=== PATIENT | female | born 1985 | race African-American/Black ===

== ENCOUNTER 2018-02-14 07:22 | Emergency (ER) | payer MEDICAID ==
[2018-02-14] MEDS ORDERED: Lidocaine 2% Gel 5 mL TP ONE ×2 (07:48→08:10)
[2018-02-14] MEDS ORDERED: Triple Antibiotic 0.94 gm Pkt TP ONE (09:19)
--- NOTE | 2018-02-14 09:34 | ED Physician Chart ---
ED Chief Complaint/HPI - Patient Information Date Seen:: 02/14/18 Time Seen:: 07:41 Allergies:: Allergies Allergy/AdvReac Type Severity Reaction Status Date / Time acetaminophen [From Vicodin] Allergy Verified 02/14/18 07:40 hydrocodone [From Vicodin] Allergy Verified 02/14/18 07:40 Vitals:: Vital Signs - 8 hr 02/14/18 02/14/18 07:41 08:28 Temp 97.8 F 98.2 F HR 97 64 RR 16 19 BP 143/89 129/87 O2 Sat % 100 100 Historian:: Patient Review:: Nurse's Note Reviewed ED Review of Systems - Review of Systems General/Constitutional: No fever, No chills, No weight loss, No weakness, No diaphoresis, No edema, No loss of appetite Skin: Other (left index finger laceration, 1.2 cm) Head: No headache, No light-headedness Eyes: No loss of vision, No pain, No diplopia ENT: No earache, No nasal drainage, No sore throat, No tinnitus Neck: No neck pain, No swelling, No thyromegaly, No stiffness, No mass noted Cardio Vascular: No chest pain, No palpitations, No PND, No orthopnea, No edema Pulmonary: No SOB, No cough, No sputum, No wheezing GI: No nausea, No vomiting, No diarrhea, No pain, No melena, No hematochezia, No constipation, No hematemesis G/U: No dysuria, No frequency, No hematuria Musculoskeletal: No bone or joint pain, No back pain, No muscle pain Endocrine: No polyuria, No polydipsia Psychiatric: No prior psych history, No depression, No anxiety, No suicidal ideation Hematopoietic: No bruising, No lymphadenopathy Allergic/Immuno: No urticaria, No angioedema Neurological: No syncope, No focal symptoms, No weakness, No paresthesia, No headache, No seizure, Dizziness (no dizziness now at all. last dizziness one week ago with abrupt change in position.), No confusion, No vertigo ED Past Medical History - Past Medical History Obtainable: Yes Past Medical History: No significant medical hx Surgical History: Appendectomy Family Medical History - Family Member Grandmother Hx Family Diabetes: Yes Mother History Unknown: Yes ED Physical Exam - Physical Examination General/Constitutional: Awake, Well-developed, well-nourished, Alert, No distress, GCS 15, Non-toxic appearing, Ambulatory Head: Atraumatic Eyes: Lids, conjuctiva normal, PERRL, EOMI Skin: Nl inspection, No rash, No skin lesions, No ecchymosis, Well hydrated, No lymphadenopathy Other ENMT comments:: dry oral mucosa. no saliva on tongue. Neck: Nontender, Full ROM w/o pain, No JVD, No nuchal rigidity, No bruit, No mass, No stridor Respiratory: Nl effort/Exclusion, Clear to Auscultation, No Wheeze/Rhonchi/Rales Cardio Vascular: RRR, No murmur, gallop, rubs, NL S1 S2 Other Extremities comments:: Left index finger laceration with visible fat, on radial side. NV intact. Full flexion and extension. Neuro/Psych: Alert/oriented, Normal sensory exam, Normal motor strength, Judgement/insight normal, Mood normal, Normal gait, No focal deficits ED Assessment - Assessment General Assessment: Pulse change of 24 points. Patient encouraged to hydrate self. No indication for IV hydration or lab work. - Procedures Informed Consent: Procedure/risk/benefits explained by MD: Yes Location:: left index finger Laceration Type:: Simple Wound Length: 1.2 m Prep/Irrigation:: betadine prep, sterile saline irrigation. Inspection: No dirt/debris, NO FB Local Anesthetic:: 1% lidocaine without epinephrine. Suture Type and #: 4-0 prolene. 4 sutures placed sterilely. ED Septic Shock - . Is Septic Shock (SBP<90, OR Lactate>4 mmol\L) present?: No - <6hrs of presentation: Vital Signs: Vital Signs - 8 hr 02/14/18 02/14/18 07:41 08:28 Temp 97.8 F 98.2 F HR 97 64 RR 16 19 BP 143/89 129/87 O2 Sat % 100 100 ED Reassessment (Disposition) - Reassessment Reassessment Condition:: Improved - Diagnosis Diagnosis:: Left index finger laceration Dizziness secondary to dehydration and orthostasis. Able to hydrate self. - Aftercare/Follow up Instructions Aftercare/Follow-Up Instructions:: Refer to Discharge Instructions Notes:: wound care 2 x a day. Suture removal in 14 days. Medication Prescribed:: Keflex 500 mg po qid # 12; Tramadol 50 mg po every 8 hours # 12. - Patient Disposition Discharge/Transfer:: Home Condition at Disposition:: Stable, Improved
== END 2018-02-14 10:01 | disposition home or self-care (01) ==
LOC: ER 07:22
DX: S61.211A Laceration without foreign body of left index finger without damage to nail, initial encounter (principal); E86.0 Dehydration; Z90.49 Acquired absence of other specified parts of digestive tract; Z88.5 Allergy status to narcotic agent; R42 Dizziness and giddiness; X58.XXXA Exposure to other specified factors, initial encounter; Y93.89 Activity, other specified; Y92.89 Other specified places as the place of occurrence of the external cause; Y99.8 Other external cause status
CPT/HCPCS: 99284; 12001; 90715; 96372; J1885; Z7502

== ENCOUNTER 2018-02-22 10:59 | Emergency (ER) | payer MEDICAID ==
--- NOTE | 2018-02-22 11:27 | ED Physician Chart ---
ED Chief Complaint/HPI - Patient Information Date Seen:: 02/22/18 Time Seen:: 11:19 Chief Complaint:: wound check History of Present Illness:: THIS IS A 32 YO FEMALE WHO IS HERE FOR A WOUND CHECK AND IS CONCERNED ABOUT THE LEFT INDEX FINGER SWELLING, STATING THAT SHE CLEANED IT WITH SOAP AND WATER. THE WOUND IS 8 DAYS OLD WITH ALL SUTURES IN PLACE AND NOT DRAINING AND PUS OR FLUIDS. Allergies:: Allergies Allergy/AdvReac Type Severity Reaction Status Date / Time acetaminophen [From Vicodin] Allergy Verified 02/22/18 11:07 hydrocodone [From Vicodin] Allergy Verified 02/22/18 11:07 Vitals:: Vital Signs - 8 hr 02/22/18 11:07 Temp 97.9 F HR 64 RR 18 BP 130/87 O2 Sat % 100 Historian:: Patient Review:: Nurse's Note Reviewed ED Review of Systems - Review of Systems General/Constitutional: No fever, No chills, No weight loss, No weakness, No diaphoresis, No edema, No loss of appetite Skin: No skin lesions, No rash, No bruising Head: No headache, No light-headedness Eyes: No loss of vision, No pain, No diplopia ENT: No earache, No nasal drainage, No sore throat, No tinnitus Neck: No neck pain, No swelling, No thyromegaly, No stiffness, No mass noted Cardio Vascular: No chest pain, No palpitations, No PND, No orthopnea, No edema Pulmonary: No SOB, No cough, No sputum, No wheezing GI: No nausea, No vomiting, No diarrhea, No pain, No melena, No hematochezia, No constipation, No hematemesis G/U: No dysuria, No frequency, No hematuria Musculoskeletal: No bone or joint pain, No back pain, No muscle pain, Other ( HEALING SUTURED LEFT INDEX FINGER.) Endocrine: No polyuria, No polydipsia Psychiatric: No prior psych history, No depression, No anxiety, No suicidal ideation Hematopoietic: No bruising, No lymphadenopathy Allergic/Immuno: No urticaria, No angioedema Neurological: No syncope, No focal symptoms, No weakness, No paresthesia, No headache, No seizure, No dizziness, No confusion, No vertigo ED Past Medical History - Past Medical History Obtainable: Yes Past Medical History: No significant medical hx Family History: None Social History: Non Smoker, No Alcohol, No Drug Use, Employed Surgical History: Appendectomy Psychiatricy History: None Medication: Reviewed Family Medical History - Family Member Grandmother History Unknown: Yes Hx Family Diabetes: Yes Mother History Unknown: Yes Living Status: Still Living Hx Family Hypertension: Yes ED Physical Exam - Physical Examination General/Constitutional: Awake, Well-developed, well-nourished, Alert, No distress, GCS 15, Non-toxic appearing, Ambulatory Head: Atraumatic Eyes: Lids, conjuctiva normal, PERRL, EOMI Skin: Nl inspection, No rash, No skin lesions, No ecchymosis, Well hydrated, No lymphadenopathy ENMT: External ears, nose nl, Nasal exam nl, Lips, teeth, gums nl Neck: Nontender, Full ROM w/o pain, No JVD, No nuchal rigidity, No bruit, No mass, No stridor Respiratory: Nl effort/Exclusion, Clear to Auscultation, No Wheeze/Rhonchi/Rales Cardio Vascular: RRR, No murmur, gallop, rubs, NL S1 S2 GI: No tenderness/rebounding/guarding, No organomegaly, No hernia, Normal BS's, Nondistended, No mass/bruits, No McBurney tenderness : No CVA tenderness Extremities: No tenderness or effusion, Full ROM, normal strength in all extremities, No edema, Normal digits & nails Other Extremities comments:: THE LEFT INDEX FINGER HAS [address] WITH SOME SWELLING AT THE SUTURE SITE. THE ROM OF THE FINGER WAS NORMAL. Neuro/Psych: Alert/oriented, DTR's symmetric, Normal sensory exam, Normal motor strength, Judgement/insight normal, Mood normal, Normal gait, No focal deficits Misc: Normal back, No paraspinal tenderness ED Assessment - Assessment General Assessment: HEALING LACERATION ED Septic Shock - . Is Septic Shock (SBP<90, OR Lactate>4 mmol\L) present?: No - <6hrs of presentation: Vital Signs: Vital Signs - 8 hr 02/22/18 11:07 Temp 97.9 F HR 64 RR 18 BP 130/87 O2 Sat % 100 ED Reassessment (Disposition) - Reassessment Reassessment Condition:: Improved - Diagnosis Diagnosis:: WOUND CHECK ( LEFT INDEX FINGER) - Aftercare/Follow up Instructions Aftercare/Follow-Up Instructions:: Counseled pt regarding lab results/diagnosis & need follow up, Refer to Discharge Instructions, Counseled pt & family regarding lab results/diagnosis & need follow up - Patient Disposition Discharge/Transfer:: Home Condition at Disposition:: Improved
== END 2018-02-22 12:03 | disposition home or self-care (01) ==
LOC: ER 10:59
DX: S61.211A Laceration without foreign body of left index finger without damage to nail, initial encounter (principal); Z90.49 Acquired absence of other specified parts of digestive tract; Z88.5 Allergy status to narcotic agent; X58.XXXA Exposure to other specified factors, initial encounter; Y93.89 Activity, other specified; Y92.89 Other specified places as the place of occurrence of the external cause; Y99.8 Other external cause status
CPT/HCPCS: 99283; 96372; J0696; Z7502

== ENCOUNTER 2018-02-23 11:01 | Inpatient (IN) | payer MEDICAID ==
--- NOTE | 2018-02-23 11:59 | ED Physician Chart ---
ED Chief Complaint/HPI - Patient Information Date Seen:: 02/23/18 Time Seen:: 11:13 Chief Complaint:: swollen and red left index finger History of Present Illness:: swollen and red left index finger in a non-compliant patient who never got her oral antibiotics filled and cleaned the left index finger with tap water (with a lot of bacteria) and soap instead of cleaning the wound with hydrogen peroxide and antibiotic ointment like instructed to do so. the dressing that she came in with was a single folded gauze and circumferential tape unlike the dressing that was shown to her previously. also, the left index finger has no signs of any antibiotic ointment on it or on the gauze. patient was seen here yesterday and given a shot of Rocephin. Allergies:: Allergies Allergy/AdvReac Type Severity Reaction Status Date / Time acetaminophen [From Vicodin] Allergy Verified 02/22/18 11:07 hydrocodone [From Vicodin] Allergy Verified 02/22/18 11:07 Vitals:: Vital Signs - 8 hr 02/23/18 11:13 Temp 98.7 F HR 77 RR 15 BP 124/69 O2 Sat % 100 Historian:: Patient Review:: Nurse's Note Reviewed ED Review of Systems - Review of Systems General/Constitutional: No fever, No chills, No weight loss, No weakness, No diaphoresis, No edema, No loss of appetite Skin: Other (swollen, red and painful left index finger without s/s of tenosynovitis; positive lymphangitis; no crepitance; NV intact) Head: No headache, No light-headedness Eyes: No loss of vision, No pain, No diplopia ENT: No earache, No nasal drainage, No sore throat, No tinnitus Neck: No neck pain, No swelling, No thyromegaly, No stiffness, No mass noted Cardio Vascular: No chest pain, No palpitations, No PND, No orthopnea, No edema Pulmonary: SOB GI: No nausea, No vomiting, No diarrhea, No pain, No melena, No hematochezia, No constipation, No hematemesis G/U: No dysuria, No frequency, No hematuria Musculoskeletal: No bone or joint pain, No back pain, No muscle pain Endocrine: No polyuria, No polydipsia Psychiatric: No prior psych history, No depression, No anxiety, No suicidal ideation Hematopoietic: No bruising, No lymphadenopathy Allergic/Immuno: No urticaria, No angioedema Neurological: No syncope, No focal symptoms, No weakness, No paresthesia, No headache, No seizure, No dizziness, No confusion, No vertigo ED Past Medical History - Past Medical History Obtainable: Yes Past Medical History: No significant medical hx Family Medical History - Family Member Grandmother History Unknown: Yes Hx Family Diabetes: Yes Mother History Unknown: Yes Living Status: Still Living Hx Family Hypertension: Yes ED Physical Exam - Physical Examination General/Constitutional: Awake, Well-developed, well-nourished, Alert, No distress, GCS 15, Non-toxic appearing, Ambulatory Head: Atraumatic Eyes: Lids, conjuctiva normal, PERRL, EOMI Skin: No rash, No skin lesions, No ecchymosis, Well hydrated, No lymphadenopathy Other Skin comments:: swollen, red and painful left index finger without s/s of tenosynovitis; positive lymphangitis; no crepitance; NV intact ENMT: External ears, nose nl Neck: Nontender, Full ROM w/o pain, No JVD, No nuchal rigidity, No bruit, No mass, No stridor Respiratory: Nl effort/Exclusion, Clear to Auscultation, No Wheeze/Rhonchi/Rales Cardio Vascular: RRR, No murmur, gallop, rubs, NL S1 S2 GI: No tenderness/rebounding/guarding, No organomegaly, No hernia, Normal BS's, Nondistended, No mass/bruits, No McBurney tenderness : No CVA tenderness Other Extremities comments:: swollen, red and painful left index finger without s/s of tenosynovitis; positive lymphangitis; no crepitance; NV intact Neuro/Psych: Alert/oriented, Normal sensory exam Other Neuro/Psych comments:: painful to move left index finger. No s/s of tenosynovitis. Misc: Normal back, No paraspinal tenderness ED Assessment - Assessment General Assessment: tolerated IV Vancomycin well. Assessment/Comments:: called Dr. López who is registration officer to admit the patient to the hospital for IV antibiotics. ED Septic Shock - . Is Septic Shock (SBP<90, OR Lactate>4 mmol\L) present?: No - <6hrs of presentation: Vital Signs: Vital Signs - 8 hr 02/23/18 11:13 Temp 98.7 F HR 77 RR 15 BP 124/69 O2 Sat % 100 ED Reassessment (Disposition) - Reassessment Reassessment Condition:: Improved - Diagnosis Diagnosis:: Left index finger cellulitis and lymphangitis due to non-compliance of not filling oral antibiotics or taking them and not following wound care as shown and described with hydrogen peroxide and antibiotic ointment. - Patient Disposition Discharge/Transfer:: Acute Care w/in this hosp Admitted to:: Med/Surg Condition at Disposition:: Stable, Improved
[2018-02-23 12:33] LABS: EOSINOPHILE ABSOLUTE 0.1 Th/cmm (0.1-0.4); HEMOGLOBIN 11.2 gm/dL (12-16); MONOCYTE ABSOLUTE 0.1 Th/cmm (0.3-1.0)
[2018-02-23 12:36] LABS: % LYMPHOCYTES 17.1 % (20.0-50.0); % MONOCYTES 1.6 % (2.0-10.0); % NEUTROPHILS 80.3 % (40.0-80.0); HEMATOCRIT 34.3 % (41.0-60); LYMPHOCYTE ABSOLUTE 1.4 Th/cmm (1.5-3.0); MEAN CELL VOLUME 78.4 fl (81-100); MEAN CORPUSCULAR HEMOGLOBIN 25.6 pg (27.0-31.0); MEAN CORPUSCULAR HGB CONC 32.6 pg (28.0-36.0); MEAN PLATELET VOLUME 8.5 fl; NEUTROPHILE ABSOLUTE 6.6 Th/cmm (1.8-8.0); PLATELET COUNT 519 Th/cmm (150-400); RED BLOOD COUNT 4.38 Mil/cmm (3.80-5.10); RED CELL DISTRIBUTION WIDTH 14.8 % (11.5-20.0); WHITE BLOOD COUNT 8.2 Th/cmm (4.8-10.8)
[2018-02-23 12:50] LABS: ALB/GLOB RATIO 1.2 (1.0-1.8); ALBUMIN 3.9 gm/dL (3.7-5.3); ALKALINE PHOSPHATASE 44 U/L (34-104); BILIRUBIN,TOTAL 0.2 mg/dL (0.3-1.0); BUN - UREA NITROGEN 17 mg/dL (7-25); CARBON DIOXIDE 26.3 mEq/L (21.0-31.0); CHLORIDE 108 mEq/L (98-107); CREATININE - SERUM 0.7 mg/dL (0.6-1.2); GFR AFRICAN-AMERICAN > 60.0 ml/min (>90); GFR NON AFRICAN-AMERICAN > 60.0 ml/min; GLUCOSE 100 mg/dL (70-105); MAGNESIUM 2.2 mg/dL (1.9-2.7); PHOSPHOROUS 2.8 mg/dL (2.5-5.0); POTASSIUM SERUM 3.3 mEq/L (3.5-5.1); SGOT 17 U/L (13-39); SGPT/ALT 11 U/L (7-52); SODIUM SERUM 141 mEq/L (136-145); TOTAL PROTEIN,SERUM 7.3 gm/dL (6.0-8.3)
[2018-02-23] MEDS ORDERED: Potassium Chloride 20 mEq ER Tab PO ONE ×2 (12:54→13:21)
[2018-02-23 13:05] LABS: ESR SEDIMENTATION SED RATE 54 mm/hr (0-30)
[2018-02-23 14:59] LABS: URINE SOURCE CLEAN C
[2018-02-23 15:00] LABS: URINE BILIRUBIN NEGATIVE (NEGATIVE); URINE BLOOD LARGE (NEGATIVE); URINE GLUCOSE (UA) NEGATIVE (NEGATIVE); URINE KETONE NEGATIVE (NEGATIVE); URINE LEUKOCYTE ESTERASE NEGATIVE (NEGATIVE); URINE MICROSCOPIC INDICATED? YES; URINE NITRATE NEGATIVE (NEGATIVE); URINE PH 7.5 (4.6 - 8.0); URINE PROTEIN TRACE mg/dL (NEGATIVE); URINE UROBILINOGEN 0.2 E.U./dL (0.2 - 1.0)
[2018-02-23 15:15] LABS: URINE CLARITY CLEAR (CLEAR); URINE COLOR YELLOW
[2018-02-23 15:20] LABS: URINE BACTERIA 1+ /hpf (NONE SEEN); URINE EPITHELIAL CELLS MODERATE /lpf (FEW); URINE RBC 50-100 /hpf (0-5); URINE WBC 0-2 /hpf (0-5)
[2018-02-23 16:29] LABS: INR 0.88 (0.5-1.4); PROTHROMBIN TIME (TEST) 9.3 SECONDS (9.5-11.5)
[2018-02-23 19:00] VITALS: BP 134/70
[2018-02-24] MEDS ORDERED: Hydrocodone/APAP 10 mg/325 mg Tab PO PRN (02:42)
--- NOTE | 2018-02-24 04:22 | Consultation ---
DATE OF CONSULTATION: 02/23/2018 INFECTIOUS DISEASE CONSULTATION REFERRING PHYSICIAN: Dr. López. REASON FOR CONSULTATION: Left index finger cellulitis. HISTORY OF PRESENT ILLNESS: The patient is a 32-year-old female with no significant past medical history, who had a cut injury to index finger of left hand 10 days ago and she came to the ER on 02/14/2018, 4 stitches were applied and Keflex 500 mg p.o. 4 times a day prescribed. Unfortunately, she could not fill up the prescription. Although, she took care of the wound care with soap and water as instructed. She came back again yesterday, on 02/22/2018. She was worried about the left index finger swelling and pain. She was again discharged back home. Today, she could not tolerate her pain and developed pustules under the sutures. Ultimately, she was admitted to the hospital for further care, IV antibiotic and if possible surgical intervention. The patient denies any fever or chills. PAST MEDICAL HISTORY: None significant. ALLERGIES: ACETAMINOPHEN AND HYDROCODONE. FAMILY HISTORY: Hypertension in mother, grandmother has diabetes. SOCIAL HISTORY: The patient lives at home. Denies any smoking, alcohol, or drug use. REVIEW OF SYSTEMS: GENERAL: The patient has no fever, no chills. HEENT: No diplopia, no photophobia, no sore throat. RESPIRATORY: No cough, no shortness of breath. CVS: No chest pain. No palpitation. GASTROINTESTINAL: No nausea, no vomiting, no diarrhea, no constipation. GENITOURINARY: No dysuria. MUSCULOSKELETAL: The patient has swelling and redness of the left index finger with the pain. PHYSICAL EXAMINATION: VITAL SIGNS: Current vital signs shows temperature 98.9 degrees Fahrenheit, pulse 72, respirations 18, and blood pressure 122/69. GENERAL: The patient is comfortable lying in the bed, not in acute distress. HEENT: Head is normocephalic, atraumatic. Oral cavity moist, pink tongue. Eyes: No pallor, no icterus. PERRLA, EOMI. NECK: Supple, no JVD, no carotid bruit. Trachea in midline. CHEST: Bilateral breath sounds. No crackles or wheezing. CARDIOVASCULAR: S1, S2 within normal limits. Regular rhythm. No murmur, no gallop. ABDOMEN: Soft, nontender, nondistended. Bowel sounds present. EXTREMITIES: No cyanosis, no clubbing, no edema. Left hand, the patient has a surgical suture on the distal part of the left index finger. The stitches are intact. There is a pustule, swelling, erythema, and tenderness. NEUROLOGIC: Alert, awake, and oriented x 3. No focal deficit. LABORATORY DATA: Current lab shows WBC count is 8200, hemoglobin 11.2, hematocrit 34.3, platelets are 519,000, and neutrophils 80%. Sodium is 141, potassium 3.3, chloride 108, bicarbonate is 26.3, BUN is 17, creatinine 0.7, glucose is 100. Urinalysis showed negative nitrite, negative leukoesterase. IMPRESSION: 1. Cellulitis of left index finger, postsurgical site infection 2. s/p cut injury 10 days ago. PLAN AND RECOMMENDATIONS: Continue vancomycin and Zosyn. Blood cultures. I asked Dr. Biswas to see the patient. A 3-phase bone scan to rule out osteomyelitis to left index finger. If the patient needs a hand surgery as per Dr. Biswas, surgical lead, then transfer the patient to higher level of care. The patient was informed about the plan. Thank you, Dr. López, for involving me in taking care of this patient. JOB# [id number] KIMBERLY
--- NOTE | 2018-02-24 09:14 | Diagnostic Imaging Report ---
Left hand (2 views) HISTORY: Pain, swelling No acute bony abnormalities. No fractures. No abnormal soft tissue calcifications. IMPRESSION: No acute focal bony abnormalities
[2018-02-24] MEDS ORDERED: Hydrocodone/APAP 5mg/325mg Tab PO PRN (10:40)
--- NOTE | 2018-02-24 11:00 | Consultation ---
DATE OF CONSULTATION: 02/24/2018 SURGICAL CONSULTATION REFERRING PHYSICIAN: Dr. López. REASON FOR CONSULTATION: Infected left index finger. Thank you for referring this patient to me. HISTORY OF PRESENT ILLNESS: A 32-year-old female who while cooking cut herself with a knife. She came to the Emergency Room 10 days ago and sutures were placed. She apparently had a lot of bleeding associated with this. She was given prescription for Keflex, but did not take the medication. PAST MEDICAL HISTORY: Unremarkable. LABORATORY STUDIES: On this admission show WBC to be within normal limits. Hemoglobin is 11.2. Chemistries close to normal with blood sugar of 100. X-rays of the finger did not show any abnormality. PHYSICAL EXAMINATION: The finger is swollen. There are multiple sutures in the lateral aspect of the index finger at the proximal phalanx. There is a pustule present indicating infection. PLAN: The patient is to undergo bone scan and we will await further studies to be done. It is possible that there is osteomyelitis. Sutures will be removed and debridement will be done to effect better healing. JOB# [id number]
--- NOTE | 2018-02-25 00:56 | Infectious Disease Prog Note ---
Infectious Disease Subjective - Review of Systems Service Date: 02/25/18 Subjective: NO change as such. No fever. Infectious Disease Objective - Results Result Diagrams: 02/23/18 12:00 02/25/18 08:00 Recent Labs: Laboratory Last Values WBC 8.2 Th/cmm (4.8-10.8) 02/23/18 12:00 RBC 4.38 Mil/cmm (3.80-5.10) 02/23/18 12:00 Hgb 11.2 gm/dL (12-16) L 02/23/18 12:00 Hct 34.3 % (41.0-60) L 02/23/18 12:00 MCV 78.4 fl (81-100) L 02/23/18 12:00 MCH 25.6 pg (27.0-31.0) L 02/23/18 12:00 MCHC Differential 32.6 pg (28.0-36.0) 02/23/18 12:00 RDW 14.8 % (11.5-20.0) 02/23/18 12:00 Plt Count 519 Th/cmm (150-400) H 02/23/18 12:00 MPV 8.5 fl 02/23/18 12:00 Neutrophils % 80.3 % (40.0-80.0) H 02/23/18 12:00 Lymphocytes % 17.1 % (20.0-50.0) L 02/23/18 12:00 Monocytes % 1.6 % (2.0-10.0) L 02/23/18 12:00 Eosinophils % 1.0 % (0.0-5.0) 02/23/18 12:00 Basophils % 0.0 % (0.0-2.0) 02/23/18 12:00 ESR 54 mm/hr (0-30) H 02/23/18 12:00 PT 9.3 SECONDS (9.5-11.5) L 02/23/18 12:00 INR 0.88 (0.5-1.4) 02/23/18 12:00 PTT (Actin FS) 27.6 SECONDS (26.0-38.0) 02/23/18 12:00 Sodium 141 mEq/L (136-145) 02/23/18 12:00 Potassium 3.3 mEq/L (3.5-5.1) L 02/23/18 12:00 Chloride 108 mEq/L (98-107) H 02/23/18 12:00 Carbon Dioxide 26.3 mEq/L (21.0-31.0) 02/23/18 12:00 Anion Gap 10.0 (7.0-16.0) 02/23/18 12:00 BUN 17 mg/dL (7-25) 02/23/18 12:00 Creatinine 0.7 mg/dL (0.6-1.2) 02/23/18 12:00 Est GFR ( Amer) > 60.0 ml/min (>90) 02/23/18 12:00 Est GFR (Non-Af Amer) > 60.0 ml/min 02/23/18 12:00 BUN/Creatinine Ratio 24.3 02/23/18 12:00 Glucose 100 mg/dL (70-105) 02/23/18 12:00 Calcium 9.0 mg/dL (8.6-10.3) 02/23/18 12:00 Phosphorus 2.8 mg/dL (2.5-5.0) 02/23/18 12:00 Magnesium 2.2 mg/dL (1.9-2.7) 02/23/18 12:00 Total Bilirubin 0.2 mg/dL (0.3-1.0) L 02/23/18 12:00 AST 17 U/L (13-39) 02/23/18 12:00 ALT 11 U/L (7-52) 02/23/18 12:00 Alkaline Phosphatase 44 U/L (34-104) 02/23/18 12:00 Total Protein 7.3 gm/dL (6.0-8.3) 02/23/18 12:00 Albumin 3.9 gm/dL (3.7-5.3) 02/23/18 12:00 Globulin 3.4 gm/dL 02/23/18 12:00 Albumin/Globulin Ratio 1.2 (1.0-1.8) 02/23/18 12:00 Urine Source CLEAN C 02/23/18 14:52 Urine Color YELLOW 02/23/18 14:52 Urine Clarity CLEAR (CLEAR) 02/23/18 14:52 Urine pH 7.5 (4.6 - 8.0) 02/23/18 14:52 Ur Specific Wister 1.025 (1.005-1.030) 02/23/18 14:52 Urine Protein TRACE mg/dL (NEGATIVE) 02/23/18 14:52 Urine Glucose (UA) NEGATIVE mg/dL (NEGATIVE) 02/23/18 14:52 Urine Ketones NEGATIVE mg/dL (NEGATIVE) 02/23/18 14:52 Urine Blood LARGE (NEGATIVE) H 02/23/18 14:52 Urine Nitrate NEGATIVE (NEGATIVE) 02/23/18 14:52 Urine Bilirubin NEGATIVE (NEGATIVE) 02/23/18 14:52 Urine Urobilinogen 0.2 E.U./dL (0.2 - 1.0) 02/23/18 14:52 Ur Leukocyte Esterase NEGATIVE (NEGATIVE) 02/23/18 14:52 Urine RBC 50-100 /hpf (0-5) H 02/23/18 14:52 Urine WBC 0-2 /hpf (0-5) 02/23/18 14:52 Ur Epithelial Cells MODERATE /lpf (FEW) 02/23/18 14:52 Urine Bacteria 1+ /hpf (NONE SEEN) H 02/23/18 14:52 - Physical Exam Vitals and I&O: Vital Signs Temp 98.2 F 02/25/18 00:00 Pulse 64 02/25/18 00:00 Resp 18 02/25/18 00:00 BP 135/84 02/25/18 00:00 Pulse Ox 100 02/25/18 00:00 Intake & Output 02/24/18 02/24/18 02/25/18 06:59 18:59 06:59 Intake Total 1400 Balance 1400 Weight (lbs) 84.368 kg 84.368 kg Intake: Intake, IV Amount 200 Piperacillin Sodium/ 200 Tazobact 4.5 gm In Sodium Chloride 0.9% 100 ml @ 100 mls/hr IV Q8HR [facility] Rx #:[id number] Oral 1200 Other: # Voids 2 2 # Bowel Movements 3 Weight Source Bedscale Bedscale Active Medications: Current Medications Piperacillin Sod/Tazobactam (Sod 4.5 gm/ Sodium Chloride) 100 mls @ 100 mls/hr IV Q8HR [facility] Stop: 04/25/18 04:59 Last Admin: 02/24/18 21:38 Dose: 100 mls/hr Vancomycin HCl 1.25 gm/ Sodium (Chloride) 250 mls @ 165 mls/hr IV Q12H [facility] Stop: 04/25/18 20:59 Last Admin: 02/24/18 22:41 Dose: 165 mls/hr Ketorolac Tromethamine (Toradol) 15 mg IVP Q6HR PRN PRN Reason: Pain (Moderate) Stop: 03/01/18 12:13 Miscellaneous (Vancomycin Iv Per Pharmacy) 1 ea MC PRN PRN PRN Reason: PROTOCOL Stop: 04/24/18 18:25 Mupirocin (Bactroban Oint) 1 appl TP BID [facility] Stop: 03/01/18 16:59 Last Admin: 02/24/18 17:05 Dose: 1 appl Tramadol HCl (Ultram) 100 mg PO Q6HR PRN PRN Reason: Pain (Severe) Stop: 04/25/18 10:48 Last Admin: 02/24/18 12:30 Dose: 100 mg General: no acute distress, well developed, well nourished HEENT: atraumatic, normocephalic, PERRLA, EOMI Neck: supple, no thyromegaly Cardiovascular: S1S2, regular Lungs: clear to auscultation bilaterally, clear to percussion Abdomen: soft, no tender, no distended, no mass Extremities: other (left hand index finger swollen.), no cyanosis, no clubbing , no edema Neurological: awake Skin: intact - Procedures Procedures: Procedures Procedure Code Date LAPAROSCOP APPENDECTOMY 47.01 04/21/14 LAPAROSCOPY APPENDECTOMY 86394 04/21/14 Infectious Disease Assmt/Plan - Problem List Patient Problems: All Active Problems WOUND CHECK FOR PAIN AND SWELLING (Acute) - Assessment Assessment: Cellulitis of left index finger, postsurgical site infection. h/o cut injury left index finger. - Plan Plan: Continue Vanco IV and Zosyn IV. 3P bone scan. Wound care.
--- NOTE | 2018-02-25 01:39 | History & Physical ---
ADMIT DATE: 02/23/2018 CHIEF COMPLAINT: Left index finger pain, redness, and swelling. HISTORY OF PRESENT ILLNESS: This is a 32-year-old female who sustained a left index finger injury at home while she was in the kitchen with a knife. The patient was evaluated at [facility] Emergency Room, was given sutures and was given Keflex prescription, but she never filled the prescriptions. She was cleaning the wound at home with soap and water. The patient stated that her wound gradually got worse, so she came back to the Emergency Room 2 days ago where she again was evaluated in the Emergency Room and subsequently discharged home. The patient said that her pain becomes so severe that she came back to Emergency Room again and subsequently, the patient was admitted to the hospital for further evaluation and treatment. The patient denies any fevers, chills, or any other complaints. PAST MEDICAL HISTORY: Denies any past medical history. PAST SURGICAL HISTORY: Denies any past surgical history. FAMILY HISTORY: Denies any family history. SOCIAL HISTORY: Lives at home. Denies alcohol, tobacco, or street drug use. CURRENT MEDICATIONS: Per medication list. ALLERGIES: ACETAMINOPHEN and HYDROCODONE. REVIEW OF SYSTEMS: Left index pain, otherwise 12-point system is negative. PHYSICAL EXAMINATION: VITAL SIGNS: Temperature 97.9, pulse 64, respirations 18, and blood pressure 132/67. HEART: S1, S2 normal. LUNGS: Clear bilaterally. EXTREMITIES: Left index finger exam, swelling around the distal PIP joint, with redness, tender to touch. The patient was able to move the finger well. Pulses +2. ASSESSMENT: Left index finger cellulitis, rule out osteomyelitis. PLAN: The patient was admitted to [facility], started on IV vancomycin and Zosyn. ID, General Surgery, and orthopedic consultation has been called in. Per ID and General Surgery, bone scan ordered. Pending further recommendation after the bone scan results. I have also initiated transfer plan to tertiary care center for higher level of care for possible hand surgery evaluation, I discharged, coordinator is aware about the patient's conditions and transfer planning. Awaiting bone scan results, also pending orthopedic evaluation and recommendations. I discussed with the patient regarding her condition, plan of care. She fully verbalized understanding and agreed with the plan. Toradol will be given as needed for pain control. JOB# [id number]
[2018-02-25] MEDS ORDERED: Potassium Chloride 20 mEq ER Tab PO ONE (08:33)
[2018-02-25] MEDS: KCL 20mEq/100mL Premix 20 MEQ/100 ML PIGGYBACK IV SCH ×2 (09:16→12:44)
--- NOTE | 2018-02-25 11:57 | General Progress Note ---
Subjective - Review of Systems Service Date: 02/25/18 Events since last encounter: 02/25/18 had bone scan today depending on results, will likely need debridemnt of finger, likely leave it open with wound care Objective - Results Result Diagrams: 02/23/18 12:00 02/25/18 08:00 Recent Labs: Laboratory Last Values WBC 8.2 Th/cmm (4.8-10.8) 02/23/18 12:00 RBC 4.38 Mil/cmm (3.80-5.10) 02/23/18 12:00 Hgb 11.2 gm/dL (12-16) L 02/23/18 12:00 Hct 34.3 % (41.0-60) L 02/23/18 12:00 MCV 78.4 fl (81-100) L 02/23/18 12:00 MCH 25.6 pg (27.0-31.0) L 02/23/18 12:00 MCHC Differential 32.6 pg (28.0-36.0) 02/23/18 12:00 RDW 14.8 % (11.5-20.0) 02/23/18 12:00 Plt Count 519 Th/cmm (150-400) H 02/23/18 12:00 MPV 8.5 fl 02/23/18 12:00 Neutrophils % 80.3 % (40.0-80.0) H 02/23/18 12:00 Lymphocytes % 17.1 % (20.0-50.0) L 02/23/18 12:00 Monocytes % 1.6 % (2.0-10.0) L 02/23/18 12:00 Eosinophils % 1.0 % (0.0-5.0) 02/23/18 12:00 Basophils % 0.0 % (0.0-2.0) 02/23/18 12:00 ESR 54 mm/hr (0-30) H 02/23/18 12:00 PT 9.3 SECONDS (9.5-11.5) L 02/23/18 12:00 INR 0.88 (0.5-1.4) 02/23/18 12:00 PTT (Actin FS) 27.6 SECONDS (26.0-38.0) 02/23/18 12:00 Sodium 141 mEq/L (136-145) 02/23/18 12:00 Potassium 3.3 mEq/L (3.5-5.1) L 02/23/18 12:00 Chloride 108 mEq/L (98-107) H 02/23/18 12:00 Carbon Dioxide 26.3 mEq/L (21.0-31.0) 02/23/18 12:00 Anion Gap 10.0 (7.0-16.0) 02/23/18 12:00 BUN 22 mg/dL (7-25) 02/25/18 08:00 Creatinine 1.0 mg/dL (0.6-1.2) 02/25/18 08:00 Est GFR ( Amer) > 60.0 ml/min (>90) 02/23/18 12:00 Est GFR (Non-Af Amer) > 60.0 ml/min 02/23/18 12:00 BUN/Creatinine Ratio 24.3 02/23/18 12:00 Glucose 100 mg/dL (70-105) 02/23/18 12:00 Calcium 9.0 mg/dL (8.6-10.3) 02/23/18 12:00 Phosphorus 2.8 mg/dL (2.5-5.0) 02/23/18 12:00 Magnesium 2.2 mg/dL (1.9-2.7) 02/23/18 12:00 Total Bilirubin 0.2 mg/dL (0.3-1.0) L 02/23/18 12:00 AST 17 U/L (13-39) 02/23/18 12:00 ALT 11 U/L (7-52) 02/23/18 12:00 Alkaline Phosphatase 44 U/L (34-104) 02/23/18 12:00 Total Protein 7.3 gm/dL (6.0-8.3) 02/23/18 12:00 Albumin 3.9 gm/dL (3.7-5.3) 02/23/18 12:00 Globulin 3.4 gm/dL 02/23/18 12:00 Albumin/Globulin Ratio 1.2 (1.0-1.8) 02/23/18 12:00 Urine Source CLEAN C 02/23/18 14:52 Urine Color YELLOW 02/23/18 14:52 Urine Clarity CLEAR (CLEAR) 02/23/18 14:52 Urine pH 7.5 (4.6 - 8.0) 02/23/18 14:52 Ur Specific [place] 1.025 (1.005-1.030) 02/23/18 14:52 Urine Protein TRACE mg/dL (NEGATIVE) 02/23/18 14:52 Urine Glucose (UA) NEGATIVE mg/dL (NEGATIVE) 02/23/18 14:52 Urine Ketones NEGATIVE mg/dL (NEGATIVE) 02/23/18 14:52 Urine Blood LARGE (NEGATIVE) H 02/23/18 14:52 Urine Nitrate NEGATIVE (NEGATIVE) 02/23/18 14:52 Urine Bilirubin NEGATIVE (NEGATIVE) 02/23/18 14:52 Urine Urobilinogen 0.2 E.U./dL (0.2 - 1.0) 02/23/18 14:52 Ur Leukocyte Esterase NEGATIVE (NEGATIVE) 02/23/18 14:52 Urine RBC 50-100 /hpf (0-5) H 02/23/18 14:52 Urine WBC 0-2 /hpf (0-5) 02/23/18 14:52 Ur Epithelial Cells MODERATE /lpf (FEW) 02/23/18 14:52 Urine Bacteria 1+ /hpf (NONE SEEN) H 02/23/18 14:52 Vancomycin Trough 21.6 ug/mL (5-10) H 02/25/18 08:00 - Physical Exam Vitals and I&O: Vital Signs Temp 97.6 F 02/25/18 11:43 Pulse 40 02/25/18 11:43 Resp 18 02/25/18 11:43 BP 142/70 02/25/18 11:43 Pulse Ox 100 02/25/18 11:43 Intake & Output 02/24/18 02/25/18 02/25/18 18:59 06:59 18:59 Intake Total 1400 350 Balance 1400 350 Weight (lbs) 84.368 kg 84.368 kg Intake: Intake, IV Amount 200 350 Piperacillin Sodium/ 200 100 Tazobact 4.5 gm In Sodium Chloride 0.9% 100 ml @ 100 mls/hr IV Q8HR [facility] Rx #:[id number] Vancomycin HCl 1.25 gm In 250 Sodium Chloride 0.9% 250 ml @ 165 mls/hr IV Q12H [facility] Rx#:[id number] Oral 1200 Other: # Voids 2 # Bowel Movements 3 Weight Source Bedscale Bedscale Active Medications: Current Medications Piperacillin Sod/Tazobactam (Sod 4.5 gm/ Sodium Chloride) 100 mls @ 100 mls/hr IV Q8HR [facility] Stop: 04/25/18 04:59 Last Admin: 02/25/18 05:34 Dose: 100 mls/hr Vancomycin HCl 1.25 gm/ Sodium (Chloride) 250 mls @ 165 mls/hr IV Q12H [facility] Stop: 04/25/18 20:59 Last Admin: 02/25/18 10:47 Dose: 165 mls/hr Potassium Chloride (Potassium Chloride) 20 meq in 100 mls @ 50 mls/hr IV Q2H [facility] Stop: 02/25/18 12:32 Last Admin: 02/25/18 09:16 Dose: 50 mls/hr Potassium Chloride/Dextrose/Sod Cl (D5-0.45ns W/20 Meq Kcl) 1,000 mls @ 80 mls/ hr IV .[id number] [facility] Stop: 04/26/18 08:44 Ketorolac Tromethamine (Toradol) 15 mg IVP Q6HR PRN PRN Reason: Pain (Moderate) Stop: 03/01/18 12:13 Miscellaneous (Vancomycin Iv Per Pharmacy) 1 ea MC PRN PRN PRN Reason: PROTOCOL Stop: 04/24/18 18:25 Mupirocin (Bactroban Oint) 1 appl TP BID [facility] Stop: 03/01/18 16:59 Last Admin: 02/25/18 09:23 Dose: 1 appl Ondansetron HCl (Zofran) 4 mg IV Q6H PRN PRN Reason: Nausea / Vomiting Stop: 04/26/18 08:30 Last Admin: 02/25/18 09:12 Dose: 4 mg Tramadol HCl (Ultram) 100 mg PO Q6HR PRN PRN Reason: Pain (Severe) Stop: 04/25/18 10:48 Last Admin: 02/25/18 07:19 Dose: 100 mg - Procedures Procedures: Procedures Procedure Code Date LAPAROSCOP APPENDECTOMY 47.01 04/21/14 LAPAROSCOPY APPENDECTOMY 38874 04/21/14 Assessment/Plan - Problem List Patient Problems: All Active Problems WOUND CHECK FOR PAIN AND SWELLING (Acute)
--- NOTE | 2018-02-25 12:32 | Infectious Disease Prog Note ---
Infectious Disease Subjective - Review of Systems Service Date: 02/25/18 Subjective: Continue Vanco IV and Zosyn IV. 3P bone scan. Infectious Disease Objective - Results Result Diagrams: 02/26/18 05:40 02/26/18 05:40 Recent Labs: Laboratory Last Values WBC 8.2 Th/cmm (4.8-10.8) 02/23/18 12:00 RBC 4.38 Mil/cmm (3.80-5.10) 02/23/18 12:00 Hgb 11.2 gm/dL (12-16) L 02/23/18 12:00 Hct 34.3 % (41.0-60) L 02/23/18 12:00 MCV 78.4 fl (81-100) L 02/23/18 12:00 MCH 25.6 pg (27.0-31.0) L 02/23/18 12:00 MCHC Differential 32.6 pg (28.0-36.0) 02/23/18 12:00 RDW 14.8 % (11.5-20.0) 02/23/18 12:00 Plt Count 519 Th/cmm (150-400) H 02/23/18 12:00 MPV 8.5 fl 02/23/18 12:00 Neutrophils % 80.3 % (40.0-80.0) H 02/23/18 12:00 Lymphocytes % 17.1 % (20.0-50.0) L 02/23/18 12:00 Monocytes % 1.6 % (2.0-10.0) L 02/23/18 12:00 Eosinophils % 1.0 % (0.0-5.0) 02/23/18 12:00 Basophils % 0.0 % (0.0-2.0) 02/23/18 12:00 ESR 54 mm/hr (0-30) H 02/23/18 12:00 PT 9.3 SECONDS (9.5-11.5) L 02/23/18 12:00 INR 0.88 (0.5-1.4) 02/23/18 12:00 PTT (Actin FS) 27.6 SECONDS (26.0-38.0) 02/23/18 12:00 Sodium 141 mEq/L (136-145) 02/23/18 12:00 Potassium 3.3 mEq/L (3.5-5.1) L 02/23/18 12:00 Chloride 108 mEq/L (98-107) H 02/23/18 12:00 Carbon Dioxide 26.3 mEq/L (21.0-31.0) 02/23/18 12:00 Anion Gap 10.0 (7.0-16.0) 02/23/18 12:00 BUN 22 mg/dL (7-25) 02/25/18 08:00 Creatinine 1.0 mg/dL (0.6-1.2) 02/25/18 08:00 Est GFR ( Amer) > 60.0 ml/min (>90) 02/23/18 12:00 Est GFR (Non-Af Amer) > 60.0 ml/min 02/23/18 12:00 BUN/Creatinine Ratio 24.3 02/23/18 12:00 Glucose 100 mg/dL (70-105) 02/23/18 12:00 Calcium 9.0 mg/dL (8.6-10.3) 02/23/18 12:00 Phosphorus 2.8 mg/dL (2.5-5.0) 02/23/18 12:00 Magnesium 2.2 mg/dL (1.9-2.7) 02/23/18 12:00 Total Bilirubin 0.2 mg/dL (0.3-1.0) L 02/23/18 12:00 AST 17 U/L (13-39) 02/23/18 12:00 ALT 11 U/L (7-52) 02/23/18 12:00 Alkaline Phosphatase 44 U/L (34-104) 02/23/18 12:00 Total Protein 7.3 gm/dL (6.0-8.3) 02/23/18 12:00 Albumin 3.9 gm/dL (3.7-5.3) 02/23/18 12:00 Globulin 3.4 gm/dL 02/23/18 12:00 Albumin/Globulin Ratio 1.2 (1.0-1.8) 02/23/18 12:00 Urine Source CLEAN C 02/23/18 14:52 Urine Color YELLOW 02/23/18 14:52 Urine Clarity CLEAR (CLEAR) 02/23/18 14:52 Urine pH 7.5 (4.6 - 8.0) 02/23/18 14:52 Ur Specific [place] 1.025 (1.005-1.030) 02/23/18 14:52 Urine Protein TRACE mg/dL (NEGATIVE) 02/23/18 14:52 Urine Glucose (UA) NEGATIVE mg/dL (NEGATIVE) 02/23/18 14:52 Urine Ketones NEGATIVE mg/dL (NEGATIVE) 02/23/18 14:52 Urine Blood LARGE (NEGATIVE) H 02/23/18 14:52 Urine Nitrate NEGATIVE (NEGATIVE) 02/23/18 14:52 Urine Bilirubin NEGATIVE (NEGATIVE) 02/23/18 14:52 Urine Urobilinogen 0.2 E.U./dL (0.2 - 1.0) 02/23/18 14:52 Ur Leukocyte Esterase NEGATIVE (NEGATIVE) 02/23/18 14:52 Urine RBC 50-100 /hpf (0-5) H 02/23/18 14:52 Urine WBC 0-2 /hpf (0-5) 02/23/18 14:52 Ur Epithelial Cells MODERATE /lpf (FEW) 02/23/18 14:52 Urine Bacteria 1+ /hpf (NONE SEEN) H 02/23/18 14:52 Vancomycin Trough 21.6 ug/mL (5-10) H 02/25/18 08:00 - Physical Exam Vitals and I&O: Vital Signs Temp 97.6 F 02/25/18 11:43 Pulse 40 02/25/18 11:43 Resp 18 02/25/18 11:43 BP 142/70 02/25/18 11:43 Pulse Ox 100 02/25/18 11:43 Intake & Output 02/24/18 02/25/18 02/25/18 18:59 06:59 18:59 Intake Total 1400 350 Balance 1400 350 Weight (lbs) 84.368 kg 84.368 kg Intake: Intake, IV Amount 200 350 Piperacillin Sodium/ 200 100 Tazobact 4.5 gm In Sodium Chloride 0.9% 100 ml @ 100 mls/hr IV Q8HR [facility] Rx #:[id number] Vancomycin HCl 1.25 gm In 250 Sodium Chloride 0.9% 250 ml @ 165 mls/hr IV Q12H [facility] Rx#:[id number] Oral 1200 Other: # Voids 2 # Bowel Movements 3 Weight Source Bedscale Bedscale Active Medications: Current Medications Piperacillin Sod/Tazobactam (Sod 4.5 gm/ Sodium Chloride) 100 mls @ 100 mls/hr IV Q8HR [facility] Stop: 04/25/18 04:59 Last Admin: 02/25/18 05:34 Dose: 100 mls/hr Vancomycin HCl 1.25 gm/ Sodium (Chloride) 250 mls @ 165 mls/hr IV Q12H [facility] Stop: 02/25/18 23:59 Last Admin: 02/25/18 10:47 Dose: 165 mls/hr Potassium Chloride (Potassium Chloride) 20 meq in 100 mls @ 50 mls/hr IV Q2H [facility] Stop: 02/25/18 12:32 Last Admin: 02/25/18 09:16 Dose: 50 mls/hr Potassium Chloride/Dextrose/Sod Cl (D5-0.45ns W/20 Meq Kcl) 1,000 mls @ 80 mls/ hr IV .[id number] [facility] Stop: 04/26/18 08:44 Vancomycin HCl 1 gm/ Sodium (Chloride) 250 mls @ 165 mls/hr IV Q12H [facility] Stop: 04/27/18 16:59 Ketorolac Tromethamine (Toradol) 15 mg IVP Q6HR PRN PRN Reason: Pain (Moderate) Stop: 03/01/18 12:13 Miscellaneous (Vancomycin Iv Per Pharmacy) 1 ea MC PRN PRN PRN Reason: PROTOCOL Stop: 04/24/18 18:25 Mupirocin (Bactroban Oint) 1 appl TP BID [facility] Stop: 03/01/18 16:59 Last Admin: 02/25/18 09:23 Dose: 1 appl Ondansetron HCl (Zofran) 4 mg IV Q6H PRN PRN Reason: Nausea / Vomiting Stop: 04/26/18 08:30 Last Admin: 02/25/18 09:12 Dose: 4 mg Tramadol HCl (Ultram) 100 mg PO Q6HR PRN PRN Reason: Pain (Severe) Stop: 04/25/18 10:48 Last Admin: 02/25/18 07:19 Dose: 100 mg General: no acute distress, well developed, well nourished HEENT: atraumatic, normocephalic, PERRLA, EOMI Neck: supple, no thyromegaly Cardiovascular: S1S2, regular Lungs: clear to auscultation bilaterally, clear to percussion Abdomen: soft, no tender, no distended Extremities: other (left index finger redness improving), no cyanosis, no clubbing, no edema Neurological: awake, alert, oriented Skin: intact - Procedures Procedures: Procedures Procedure Code Date LAPAROSCOP APPENDECTOMY 47.01 04/21/14 LAPAROSCOPY APPENDECTOMY 49306 04/21/14 Infectious Disease Assmt/Plan - Assessment Assessment: Cellulitis of left index finger, postsurgical site infection s/p cut injury 10 days ago. - Plan Plan: Continue vancomycin IV and Zosyn IV. Wound care.
[2018-02-25] MEDS ORDERED: [UNRECOGNIZED DRUG - OTHER] TP ONE (14:00)
--- NOTE | 2018-02-25 15:06 | Diagnostic Imaging Report ---
Nuclear medicine 3 phase bone scan History: Penetrating injury of the left index finger Comparison: Left hand x-ray on 02/25/2018 Technique/procedure: 26.1 mCi millicuries of technetium 99 MDP was administered intravenously and flow, blood flow, and delayed images of the hands were obtained. Findings: Flow images demonstrate increased uptake of the left index finger. Blood flow images also demonstrate increased uptake of the left index finger. Delayed images demonstrate slight increased uptake seen along the left proximal interphalangeal and distal interphalangeal joint region. IMPRESSION: Findings suggestive of cellulitis of the left index finger. There is slight increased uptake seen within the proximal and distal interphalangeal joints of the left index finger on the delayed images. Osteomyelitis or involvement of the joint spaces cannot be completely excluded in this region. Recommend MRI for further assessment.
[2018-02-25] MEDS: D5-0.45NS w/20 mEq KCL 1,000 ML IV SCH (15:50)
--- NOTE | 2018-02-25 22:25 | General Progress Note ---
Subjective - Review of Systems Service Date: 02/25/18 Subjective: Patient seen and examined Nursing staff reported that patient had some episode of vomiting last night doing better this morning s/p bone scan Objective - Results Result Diagrams: 02/23/18 12:00 02/25/18 08:00 Recent Labs: Laboratory Last Values WBC 8.2 Th/cmm (4.8-10.8) 02/23/18 12:00 RBC 4.38 Mil/cmm (3.80-5.10) 02/23/18 12:00 Hgb 11.2 gm/dL (12-16) L 02/23/18 12:00 Hct 34.3 % (41.0-60) L 02/23/18 12:00 MCV 78.4 fl (81-100) L 02/23/18 12:00 MCH 25.6 pg (27.0-31.0) L 02/23/18 12:00 MCHC Differential 32.6 pg (28.0-36.0) 02/23/18 12:00 RDW 14.8 % (11.5-20.0) 02/23/18 12:00 Plt Count 519 Th/cmm (150-400) H 02/23/18 12:00 MPV 8.5 fl 02/23/18 12:00 Neutrophils % 80.3 % (40.0-80.0) H 02/23/18 12:00 Lymphocytes % 17.1 % (20.0-50.0) L 02/23/18 12:00 Monocytes % 1.6 % (2.0-10.0) L 02/23/18 12:00 Eosinophils % 1.0 % (0.0-5.0) 02/23/18 12:00 Basophils % 0.0 % (0.0-2.0) 02/23/18 12:00 ESR 54 mm/hr (0-30) H 02/23/18 12:00 PT 9.3 SECONDS (9.5-11.5) L 02/23/18 12:00 INR 0.88 (0.5-1.4) 02/23/18 12:00 PTT (Actin FS) 27.6 SECONDS (26.0-38.0) 02/23/18 12:00 Sodium 141 mEq/L (136-145) 02/23/18 12:00 Potassium 3.3 mEq/L (3.5-5.1) L 02/23/18 12:00 Chloride 108 mEq/L (98-107) H 02/23/18 12:00 Carbon Dioxide 26.3 mEq/L (21.0-31.0) 02/23/18 12:00 Anion Gap 10.0 (7.0-16.0) 02/23/18 12:00 BUN 22 mg/dL (7-25) 02/25/18 08:00 Creatinine 1.0 mg/dL (0.6-1.2) 02/25/18 08:00 Est GFR ( Amer) > 60.0 ml/min (>90) 02/23/18 12:00 Est GFR (Non-Af Amer) > 60.0 ml/min 02/23/18 12:00 BUN/Creatinine Ratio 24.3 02/23/18 12:00 Glucose 100 mg/dL (70-105) 02/23/18 12:00 Calcium 9.0 mg/dL (8.6-10.3) 02/23/18 12:00 Phosphorus 2.8 mg/dL (2.5-5.0) 02/23/18 12:00 Magnesium 2.2 mg/dL (1.9-2.7) 02/23/18 12:00 Total Bilirubin 0.2 mg/dL (0.3-1.0) L 02/23/18 12:00 AST 17 U/L (13-39) 02/23/18 12:00 ALT 11 U/L (7-52) 02/23/18 12:00 Alkaline Phosphatase 44 U/L (34-104) 02/23/18 12:00 Total Protein 7.3 gm/dL (6.0-8.3) 02/23/18 12:00 Albumin 3.9 gm/dL (3.7-5.3) 02/23/18 12:00 Globulin 3.4 gm/dL 02/23/18 12:00 Albumin/Globulin Ratio 1.2 (1.0-1.8) 02/23/18 12:00 Urine Source CLEAN C 02/23/18 14:52 Urine Color YELLOW 02/23/18 14:52 Urine Clarity CLEAR (CLEAR) 02/23/18 14:52 Urine pH 7.5 (4.6 - 8.0) 02/23/18 14:52 Ur Specific [place] 1.025 (1.005-1.030) 02/23/18 14:52 Urine Protein TRACE mg/dL (NEGATIVE) 02/23/18 14:52 Urine Glucose (UA) NEGATIVE mg/dL (NEGATIVE) 02/23/18 14:52 Urine Ketones NEGATIVE mg/dL (NEGATIVE) 02/23/18 14:52 Urine Blood LARGE (NEGATIVE) H 02/23/18 14:52 Urine Nitrate NEGATIVE (NEGATIVE) 02/23/18 14:52 Urine Bilirubin NEGATIVE (NEGATIVE) 02/23/18 14:52 Urine Urobilinogen 0.2 E.U./dL (0.2 - 1.0) 02/23/18 14:52 Ur Leukocyte Esterase NEGATIVE (NEGATIVE) 02/23/18 14:52 Urine RBC 50-100 /hpf (0-5) H 02/23/18 14:52 Urine WBC 0-2 /hpf (0-5) 02/23/18 14:52 Ur Epithelial Cells MODERATE /lpf (FEW) 02/23/18 14:52 Urine Bacteria 1+ /hpf (NONE SEEN) H 02/23/18 14:52 Urine Test NEGATIVE 02/25/18 18:00 Vancomycin Trough 21.6 ug/mL (5-10) H 02/25/18 08:00 - Physical Exam Vitals and I&O: Vital Signs Temp 96.8 F 02/25/18 20:00 Pulse 46 02/25/18 20:00 Resp 19 02/25/18 20:00 BP 152/68 02/25/18 20:00 Pulse Ox 99 02/25/18 20:00 Intake & Output 02/25/18 02/25/18 02/26/18 06:59 18:59 06:59 Intake Total 450 1000 100 Balance 450 1000 100 Weight (lbs) 84.368 kg 83.461 kg Intake: Intake, IV Amount 450 200 100 KCL 20mEq/100mL Premix 20 100 meq In 100 ml @ 50 mls/ hr IV Q2H [facility] Rx#: [id number] Piperacillin Sodium/ 200 100 100 Tazobact 4.5 gm In Sodium Chloride 0.9% 100 ml @ 100 mls/hr IV Q8HR [facility] Rx #:[id number] Vancomycin HCl 1.25 gm In 250 Sodium Chloride 0.9% 250 ml @ 165 mls/hr IV Q12H [facility] Rx#:[id number] Oral 800 Other: # Voids 5 # Bowel Movements 3 Weight Source Bedscale Bedscale Active Medications: Current Medications Piperacillin Sod/Tazobactam (Sod 4.5 gm/ Sodium Chloride) 100 mls @ 100 mls/hr IV Q8HR [facility] Stop: 04/25/18 04:59 Last Infusion: 02/25/18 21:11 Dose: Infused Potassium Chloride/Dextrose/Sod Cl (D5-0.45ns W/20 Meq Kcl) 1,000 mls @ 80 mls/ hr IV .[id number] [facility] Stop: 04/26/18 08:44 Last Admin: 02/25/18 15:50 Dose: 80 mls/hr Vancomycin HCl 1 gm/ Sodium (Chloride) 250 mls @ 165 mls/hr IV Q12H [facility] Stop: 04/26/18 20:59 Last Admin: 02/25/18 21:45 Dose: 165 mls/hr Ketorolac Tromethamine (Toradol) 15 mg IVP Q6HR PRN PRN Reason: Pain (Moderate) Stop: 03/01/18 12:13 Miscellaneous (Vancomycin Iv Per Pharmacy) 1 ea MC PRN PRN PRN Reason: PROTOCOL Stop: 04/24/18 18:25 Mupirocin (Bactroban Oint) 1 appl TP BID [facility] Stop: 03/01/18 16:59 Last Admin: 02/25/18 16:30 Dose: 1 appl Ondansetron HCl (Zofran) 4 mg IV Q6H PRN PRN Reason: Nausea / Vomiting Stop: 04/26/18 08:30 Last Admin: 02/25/18 21:47 Dose: 4 mg Tramadol HCl (Ultram) 100 mg PO Q6HR PRN PRN Reason: Pain (Severe) Stop: 04/25/18 10:48 Last Admin: 02/25/18 14:45 Dose: 100 mg Cardiovascular: Regular rate Lungs: Clear to auscultation Abdomen: Soft, no Tender, no Distended Extremities: Other (left index finger dressing in place clean) - Procedures Procedures: Procedures Procedure Code Date LAPAROSCOP APPENDECTOMY 47.01 04/21/14 LAPAROSCOPY APPENDECTOMY 75709 04/21/14 Assessment/Plan - Problem List Patient Problems: All Active Problems WOUND CHECK FOR PAIN AND SWELLING (Acute) - Assessment Assessment: Left index finger cellulitis Vomiting and diarrhea ? Medication side effect better Hypokalemia - Plan Plan: Bone scan ? osteo MRI ordered Wound debridement per DR MANUEL Ortho evaluated the patient ordered MRI left hand to r/o osteomyelitis Continue IV antibiotics and wound care K replaced patient was updated on plan of care She understood well Plan of care discussed with the nursing staff Nutritional Asmnt/Malnutr-PDOC - Dietary Evaluation Malnutrition Findings (Please click <Entered> for more info): Nutritional Asmnt/Malnutrition Start: 02/25/18 16: 46 Text: Status: Active Freq: Protocol: Document 02/25/18 17:02 [email or web address] (Rec: 02/25/18 17:21 [email or web address] [id number]) Nutritional Asmnt/Malnutrition Patient General Information Nutritional Screening High Risk Consult Diagnosis cellulitis Pertinent Medical Hx/Surgical Hx Pt denies any past medical/ surgical hx Subjective Information Recieved nutrition consult for wound. Pt was seen eating lunch in bed at time of visit. Pt initially c/o n/v possibly due to antibiotics, but reported no more s/s after administration of zofran per nursing note. Admitted d/t cellulitis of left index finger. Encouraged protein intake to promote wound healing. Pt verbalized understood. Per EMR, PO intake 75-100%. Pt provided food preferences. Current Diet Order/ Nutrition Support regular Pertinent Medications vancomycin, piperacillin, zofran, D5-0.45ns w/ 20 Meq Kcl Pertinent Labs 02/23: K 3.3, Cl 108 Nutritional Hx/Data Height 1.68 m Height (Calculated Centimeters) 167.6 Current Weight (lbs) 84.368 kg Weight (Calculated Kilograms) 84.4 Weight (Calculated Grams) 26401.2 [place] Body Weight 130 Body Mass Index (BMI) 29.9 Weight Status Overweight GI Symptoms GI Symptoms Nausea Vomitting Last BM 02/24 x3 Difficult in: None Food Allergies No Skin Integrity/Comment: incision and ulceration to left index finger Current %PO Good (75-100%) Estimated Nutritional Goals BEE in Kcals: Using Current wt Calories/Kcals/Kg 22-25 Kcals Calculated 7692-6609 Protein: Using Current wt Protein g/k Protein Calculated 84g Fluid: ml 7257-9275 (1 ml/kcal) Nutritional Problem 1. Problem Problem Increased protein needs Etiology wound healing Signs/Symptoms: incision and ulceration of left index finger Malnutrition Alert Is there a minimum of two criteria No selected? Query Text:Check all the applicable criteria. A minimum of two criteria are recommended for diagnosis of either severe or non-severe malnutrition. Malnutrition Related to Morbid Obesity Malnutrition related to morbid obesity No Intervention/Recommendation Comments 1. Continue with regular diet as order. PO intake to meet 100% of protein needs. Food preferences updated. 2. Monitor PO intake, wt, labs , and skin integrity of left index finger 3. F/U as moderate risk in 3-5 days, 02/28-03/02 Expected Outcomes/Goals Expected Outcomes/Goals 1. PO intake to meet at least 75% of nutritional needs 2. Wt stability, improvement of skin integrity, labs to approach WNL Reviewed by Alexandra Dalal RD
--- NOTE | 2018-02-25 22:28 | Consultation ---
DATE OF CONSULTATION: 02/25/2018 ORTHOPEDIC SURGERY CONSULTATION HISTORY OF PRESENT ILLNESS: The patient is a 32-year-old lady admitted to [facility] on 02/23/2018 because of an infection of her left index finger. She stated she had been to the Emergency Room 12 days earlier and had the left index finger laceration sutured. He had been given a prescription for antibiotics, but did not get it filled. She think it began to hurt and swell and she came back for 2 more visits and it was decided that she was infected, so she was admitted. I was called in orthopedic consultation by the admitting physician regarding her left index finger situation. PAST HISTORY: There is no prior history of injury or infection of her left index finger. General health is good. FAMILY HISTORY: Negative for TB, diabetes, and bleeding disorders. PHYSICAL EXAMINATION: The patient was examined in her hospital room on the [facility] k[facility]. The dressing on her left index finger was removed and the finger examined. There was a suture line extending from somewhat on the volar surface around the lateral aspect of the finger near the distal portion of the proximal phalanx. There is slight swelling, no obvious drainage. The dressing was dry. She does have sensation all around the tip of the left index finger, movement is minimal and painful. She can flex the tip against resistance. IMAGING STUDIES: I reviewed x-rays in the PACS on 02/23/2018, left hand and index finger. Slight soft tissue swelling of the left index finger was noted. The x-rays otherwise are normal. ORTHOPEDIC IMPRESSION: Infected laceration of the left index finger recommendations. RECOMMENDATIONS: The neurovascular bundle appears to be intact as she has full sensation on both sides of the tip and distal phalanx. The x-rays are clear, did not show any bone involvement. I would recommend the sutures be removed and the wound allowed to open slightly and start warm soaks for 30 minutes 4 times a day, putting Epsom salts in the water, so to draw out material. Continue the present antibiotic regimen. I will reevaluate her after 24 hours of said treatment and possibly debride the wound if she needs it. Thank you for this interesting referral. JOB# [id number]
[2018-02-26 06:35] LABS: % BASOPHILS 0.4 % (0.0-2.0); % EOSINOPHILS 1.7 % (0.0-5.0); % LYMPHOCYTES 25.9 % (20.0-50.0); EOSINOPHILE ABSOLUTE 0.1 Th/cmm (0.1-0.4); HEMOGLOBIN 9.7 gm/dL (12-16); MEAN CELL VOLUME 79.2 fl (81-100); MEAN CORPUSCULAR HEMOGLOBIN 25.5 pg (27.0-31.0); MEAN CORPUSCULAR HGB CONC 32.2 pg (28.0-36.0); MEAN PLATELET VOLUME 8.2 fl; MONOCYTE ABSOLUTE 0.8 Th/cmm (0.3-1.0); NEUTROPHILE ABSOLUTE 4.8 Th/cmm (1.8-8.0); PLATELET COUNT 459 Th/cmm (150-400); RED BLOOD COUNT 3.78 Mil/cmm (3.80-5.10); RED CELL DISTRIBUTION WIDTH 14.6 % (11.5-20.0); WHITE BLOOD COUNT 7.7 Th/cmm (4.8-10.8)
[2018-02-26 06:51] LABS: ALB/GLOB RATIO 1.1 (1.0-1.8); ALBUMIN 3.6 gm/dL (3.7-5.3); ALKALINE PHOSPHATASE 37 U/L (34-104); ANION GAP 11.7 (7.0-16.0); BILIRUBIN,TOTAL 0.4 mg/dL (0.3-1.0); BUN - UREA NITROGEN 13 mg/dL (7-25); CALCIUM SERUM 9.1 mg/dL (8.6-10.3); CARBON DIOXIDE 23.8 mEq/L (21.0-31.0); CHLORIDE 107 mEq/L (98-107); GFR AFRICAN-AMERICAN > 60.0 ml/min (>90); GFR NON AFRICAN-AMERICAN > 60.0 ml/min; GLUCOSE 93 mg/dL (70-105); POTASSIUM SERUM 3.5 mEq/L (3.5-5.1); SGOT 13 U/L (13-39); SGPT/ALT 8 U/L (7-52); SODIUM SERUM 139 mEq/L (136-145); TOTAL PROTEIN,SERUM 6.9 gm/dL (6.0-8.3)
--- NOTE | 2018-02-26 07:28 | General Progress Note ---
Subjective - Review of Systems Service Date: 02/26/18 Events since last encounter: bone scan noted will have Dr. Wylie take over management of this patient Objective - Results Result Diagrams: 02/26/18 05:40 02/26/18 05:40 Recent Labs: Laboratory Last Values WBC 7.7 Th/cmm (4.8-10.8) 02/26/18 05:40 RBC 3.78 Mil/cmm (3.80-5.10) L 02/26/18 05:40 Hgb 9.7 gm/dL (12-16) L 02/26/18 05:40 Hct 30.0 % (41.0-60) L 02/26/18 05:40 MCV 79.2 fl (81-100) L 02/26/18 05:40 MCH 25.5 pg (27.0-31.0) L 02/26/18 05:40 MCHC Differential 32.2 pg (28.0-36.0) 02/26/18 05:40 RDW 14.6 % (11.5-20.0) 02/26/18 05:40 Plt Count 459 Th/cmm (150-400) H 02/26/18 05:40 MPV 8.2 fl 02/26/18 05:40 Neutrophils % 61.0 % (40.0-80.0) 02/26/18 05:40 Lymphocytes % 25.9 % (20.0-50.0) 02/26/18 05:40 Monocytes % 11.0 % (2.0-10.0) H 02/26/18 05:40 Eosinophils % 1.7 % (0.0-5.0) 02/26/18 05:40 Basophils % 0.4 % (0.0-2.0) 02/26/18 05:40 ESR 54 mm/hr (0-30) H 02/23/18 12:00 PT 9.3 SECONDS (9.5-11.5) L 02/23/18 12:00 INR 0.88 (0.5-1.4) 02/23/18 12:00 PTT (Actin FS) 27.6 SECONDS (26.0-38.0) 02/23/18 12:00 Sodium 139 mEq/L (136-145) 02/26/18 05:40 Potassium 3.5 mEq/L (3.5-5.1) 02/26/18 05:40 Chloride 107 mEq/L (98-107) 02/26/18 05:40 Carbon Dioxide 23.8 mEq/L (21.0-31.0) 02/26/18 05:40 Anion Gap 11.7 (7.0-16.0) 02/26/18 05:40 BUN 13 mg/dL (7-25) 02/26/18 05:40 Creatinine 1.0 mg/dL (0.6-1.2) 02/26/18 05:40 Est GFR ( Amer) > 60.0 ml/min (>90) 02/26/18 05:40 Est GFR (Non-Af Amer) > 60.0 ml/min 02/26/18 05:40 BUN/Creatinine Ratio 13.0 02/26/18 05:40 Glucose 93 mg/dL (70-105) 02/26/18 05:40 Calcium 9.1 mg/dL (8.6-10.3) 02/26/18 05:40 Phosphorus 2.8 mg/dL (2.5-5.0) 02/23/18 12:00 Magnesium 2.2 mg/dL (1.9-2.7) 02/23/18 12:00 Total Bilirubin 0.4 mg/dL (0.3-1.0) 02/26/18 05:40 AST 13 U/L (13-39) 02/26/18 05:40 ALT 8 U/L (7-52) 02/26/18 05:40 Alkaline Phosphatase 37 U/L (34-104) 02/26/18 05:40 Total Protein 6.9 gm/dL (6.0-8.3) 02/26/18 05:40 Albumin 3.6 gm/dL (3.7-5.3) L 02/26/18 05:40 Globulin 3.3 gm/dL 02/26/18 05:40 Albumin/Globulin Ratio 1.1 (1.0-1.8) 02/26/18 05:40 Urine Source CLEAN C 02/23/18 14:52 Urine Color YELLOW 02/23/18 14:52 Urine Clarity CLEAR (CLEAR) 02/23/18 14:52 Urine pH 7.5 (4.6 - 8.0) 02/23/18 14:52 Ur Specific [place] 1.025 (1.005-1.030) 02/23/18 14:52 Urine Protein TRACE mg/dL (NEGATIVE) 02/23/18 14:52 Urine Glucose (UA) NEGATIVE mg/dL (NEGATIVE) 02/23/18 14:52 Urine Ketones NEGATIVE mg/dL (NEGATIVE) 02/23/18 14:52 Urine Blood LARGE (NEGATIVE) H 02/23/18 14:52 Urine Nitrate NEGATIVE (NEGATIVE) 02/23/18 14:52 Urine Bilirubin NEGATIVE (NEGATIVE) 02/23/18 14:52 Urine Urobilinogen 0.2 E.U./dL (0.2 - 1.0) 02/23/18 14:52 Ur Leukocyte Esterase NEGATIVE (NEGATIVE) 02/23/18 14:52 Urine RBC 50-100 /hpf (0-5) H 02/23/18 14:52 Urine WBC 0-2 /hpf (0-5) 02/23/18 14:52 Ur Epithelial Cells MODERATE /lpf (FEW) 02/23/18 14:52 Urine Bacteria 1+ /hpf (NONE SEEN) H 02/23/18 14:52 Urine Test NEGATIVE 02/25/18 18:00 Vancomycin Trough 21.6 ug/mL (5-10) H 02/25/18 08:00 - Physical Exam Vitals and I&O: Vital Signs Temp 98.9 F 02/26/18 04:00 Pulse 54 02/26/18 04:00 Resp 18 02/26/18 04:00 BP 134/80 02/26/18 04:00 Pulse Ox 100 02/26/18 04:00 Intake & Output 02/25/18 02/26/18 02/26/18 18:59 06:59 18:59 Intake Total 1000 100 Balance 1000 100 Weight (lbs) 83.461 kg Intake: Intake, IV Amount 200 100 KCL 20mEq/100mL Premix 20 100 meq In 100 ml @ 50 mls/ hr IV Q2H [facility] Rx#: [id number] Piperacillin Sodium/ 100 100 Tazobact 4.5 gm In Sodium Chloride 0.9% 100 ml @ 100 mls/hr IV Q8HR [facility] Rx #:[id number] Oral 800 Other: # Voids 5 # Bowel Movements 3 Weight Source Bedscale Active Medications: Current Medications Piperacillin Sod/Tazobactam (Sod 4.5 gm/ Sodium Chloride) 100 mls @ 100 mls/hr IV Q8HR [facility] Stop: 04/25/18 04:59 Last Admin: 02/26/18 05:17 Dose: 100 mls/hr Potassium Chloride/Dextrose/Sod Cl (D5-0.45ns W/20 Meq Kcl) 1,000 mls @ 80 mls/ hr IV .[id number] [facility] Stop: 04/26/18 08:44 Last Admin: 02/25/18 15:50 Dose: 80 mls/hr Vancomycin HCl 1 gm/ Sodium (Chloride) 250 mls @ 165 mls/hr IV Q12H [facility] Stop: 04/26/18 20:59 Last Admin: 02/25/18 21:45 Dose: 165 mls/hr Ketorolac Tromethamine (Toradol) 15 mg IVP Q6HR PRN PRN Reason: Pain (Moderate) Stop: 03/01/18 12:13 Miscellaneous (Vancomycin Iv Per Pharmacy) 1 ea MC PRN PRN PRN Reason: PROTOCOL Stop: 04/24/18 18:25 Mupirocin (Bactroban Oint) 1 appl TP BID [facility] Stop: 03/01/18 16:59 Last Admin: 02/25/18 16:30 Dose: 1 appl Ondansetron HCl (Zofran) 4 mg IV Q6H PRN PRN Reason: Nausea / Vomiting Stop: 04/26/18 08:30 Last Admin: 02/26/18 05:16 Dose: 4 mg Tramadol HCl (Ultram) 100 mg PO Q6HR PRN PRN Reason: Pain (Severe) Stop: 04/25/18 10:48 Last Admin: 02/25/18 14:45 Dose: 100 mg Cardiovascular: Regular rate Lungs: Clear to auscultation Abdomen: Soft, no Tender, no Distended Extremities: Other (left index finger dressing in place clean) - Procedures Procedures: Procedures Procedure Code Date LAPAROSCOP APPENDECTOMY 47.01 04/21/14 LAPAROSCOPY APPENDECTOMY 69395 04/21/14 Assessment/Plan - Problem List Patient Problems: All Active Problems WOUND CHECK FOR PAIN AND SWELLING (Acute) Nutritional Asmnt/Malnutr-PDOC - Dietary Evaluation Malnutrition Findings (Please click <Entered> for more info): Nutritional Asmnt/Malnutrition Start: 02/25/18 16: 46 Text: Status: Active Freq: Protocol: Document 02/25/18 17:02 SANDRA (Rec: 02/25/18 17:21 SANDRA [id number]) Nutritional Asmnt/Malnutrition Patient General Information Nutritional Screening High Risk Consult Diagnosis cellulitis Pertinent Medical Hx/Surgical Hx Pt denies any past medical/ surgical hx Subjective Information Recieved nutrition consult for wound. Pt was seen eating lunch in bed at time of visit. Pt initially c/o n/v possibly due to antibiotics, but reported no more s/s after administration of zofran per nursing note. Admitted d/t cellulitis of left index finger. Encouraged protein intake to promote wound healing. Pt verbalized understood. Per EMR, PO intake 75-100%. Pt provided food preferences. Current Diet Order/ Nutrition Support regular Pertinent Medications vancomycin, piperacillin, zofran, D5-0.45ns w/ 20 Meq Kcl Pertinent Labs 02/23: K 3.3, Cl 108 Nutritional Hx/Data Height 1.68 m Height (Calculated Centimeters) 167.6 Current Weight (lbs) 84.368 kg Weight (Calculated Kilograms) 84.4 Weight (Calculated Grams) 44676.2 [place] Body Weight 130 Body Mass Index (BMI) 29.9 Weight Status Overweight GI Symptoms GI Symptoms Nausea Vomitting Last BM 02/24 x3 Difficult in: None Food Allergies No Skin Integrity/Comment: incision and ulceration to left index finger Current %PO Good (75-100%) Estimated Nutritional Goals BEE in Kcals: Using Current wt Calories/Kcals/Kg 22-25 Kcals Calculated Protein: Using Current wt Protein g/k Protein Calculated 84g Fluid: ml (1 ml/kcal) Nutritional Problem 1. Problem Problem Increased protein needs Etiology wound healing Signs/Symptoms: incision and ulceration of left index finger Malnutrition Alert Is there a minimum of two criteria No selected? Query Text:Check all the applicable criteria. A minimum of two criteria are recommended for diagnosis of either severe or non-severe malnutrition. Malnutrition Related to Morbid Obesity Malnutrition related to morbid obesity No Intervention/Recommendation Comments 1. Continue with regular diet as order. PO intake to meet 100% of protein needs. Food preferences updated. 2. Monitor PO intake, wt, labs , and skin integrity of left index finger 3. F/U as moderate risk in 3-5 days, 02/28-03/02 Expected Outcomes/Goals Expected Outcomes/Goals 1. PO intake to meet at least 75% of nutritional needs 2. Wt stability, improvement of skin integrity, labs to approach WNL Reviewed by Alexandra Dalal RD
--- NOTE | 2018-02-26 09:41 | Infectious Disease Prog Note ---
Infectious Disease Subjective - Review of Systems Service Date: 02/26/18 Subjective: NO change as such. No fever. Infectious Disease Objective - Results Result Diagrams: 02/26/18 05:40 02/26/18 05:40 Recent Labs: Laboratory Last Values WBC 7.7 Th/cmm (4.8-10.8) 02/26/18 05:40 RBC 3.78 Mil/cmm (3.80-5.10) L 02/26/18 05:40 Hgb 9.7 gm/dL (12-16) L 02/26/18 05:40 Hct 30.0 % (41.0-60) L 02/26/18 05:40 MCV 79.2 fl (81-100) L 02/26/18 05:40 MCH 25.5 pg (27.0-31.0) L 02/26/18 05:40 MCHC Differential 32.2 pg (28.0-36.0) 02/26/18 05:40 RDW 14.6 % (11.5-20.0) 02/26/18 05:40 Plt Count 459 Th/cmm (150-400) H 02/26/18 05:40 MPV 8.2 fl 02/26/18 05:40 Neutrophils % 61.0 % (40.0-80.0) 02/26/18 05:40 Lymphocytes % 25.9 % (20.0-50.0) 02/26/18 05:40 Monocytes % 11.0 % (2.0-10.0) H 02/26/18 05:40 Eosinophils % 1.7 % (0.0-5.0) 02/26/18 05:40 Basophils % 0.4 % (0.0-2.0) 02/26/18 05:40 ESR 54 mm/hr (0-30) H 02/23/18 12:00 PT 9.3 SECONDS (9.5-11.5) L 02/23/18 12:00 INR 0.88 (0.5-1.4) 02/23/18 12:00 PTT (Actin FS) 27.6 SECONDS (26.0-38.0) 02/23/18 12:00 Sodium 139 mEq/L (136-145) 02/26/18 05:40 Potassium 3.5 mEq/L (3.5-5.1) 02/26/18 05:40 Chloride 107 mEq/L (98-107) 02/26/18 05:40 Carbon Dioxide 23.8 mEq/L (21.0-31.0) 02/26/18 05:40 Anion Gap 11.7 (7.0-16.0) 02/26/18 05:40 BUN 13 mg/dL (7-25) 02/26/18 05:40 Creatinine 1.0 mg/dL (0.6-1.2) 02/26/18 05:40 Est GFR ( Amer) > 60.0 ml/min (>90) 02/26/18 05:40 Est GFR (Non-Af Amer) > 60.0 ml/min 02/26/18 05:40 BUN/Creatinine Ratio 13.0 02/26/18 05:40 Glucose 93 mg/dL (70-105) 02/26/18 05:40 Calcium 9.1 mg/dL (8.6-10.3) 02/26/18 05:40 Phosphorus 2.8 mg/dL (2.5-5.0) 02/23/18 12:00 Magnesium 2.2 mg/dL (1.9-2.7) 02/23/18 12:00 Total Bilirubin 0.4 mg/dL (0.3-1.0) 02/26/18 05:40 AST 13 U/L (13-39) 02/26/18 05:40 ALT 8 U/L (7-52) 02/26/18 05:40 Alkaline Phosphatase 37 U/L (34-104) 02/26/18 05:40 Total Protein 6.9 gm/dL (6.0-8.3) 02/26/18 05:40 Albumin 3.6 gm/dL (3.7-5.3) L 02/26/18 05:40 Globulin 3.3 gm/dL 02/26/18 05:40 Albumin/Globulin Ratio 1.1 (1.0-1.8) 02/26/18 05:40 Urine Source CLEAN C 02/23/18 14:52 Urine Color YELLOW 02/23/18 14:52 Urine Clarity CLEAR (CLEAR) 02/23/18 14:52 Urine pH 7.5 (4.6 - 8.0) 02/23/18 14:52 Ur Specific [place] 1.025 (1.005-1.030) 02/23/18 14:52 Urine Protein TRACE mg/dL (NEGATIVE) 02/23/18 14:52 Urine Glucose (UA) NEGATIVE mg/dL (NEGATIVE) 02/23/18 14:52 Urine Ketones NEGATIVE mg/dL (NEGATIVE) 02/23/18 14:52 Urine Blood LARGE (NEGATIVE) H 02/23/18 14:52 Urine Nitrate NEGATIVE (NEGATIVE) 02/23/18 14:52 Urine Bilirubin NEGATIVE (NEGATIVE) 02/23/18 14:52 Urine Urobilinogen 0.2 E.U./dL (0.2 - 1.0) 02/23/18 14:52 Ur Leukocyte Esterase NEGATIVE (NEGATIVE) 02/23/18 14:52 Urine RBC 50-100 /hpf (0-5) H 02/23/18 14:52 Urine WBC 0-2 /hpf (0-5) 02/23/18 14:52 Ur Epithelial Cells MODERATE /lpf (FEW) 02/23/18 14:52 Urine Bacteria 1+ /hpf (NONE SEEN) H 02/23/18 14:52 Urine Test NEGATIVE 02/25/18 18:00 Vancomycin Trough 21.6 ug/mL (5-10) H 02/25/18 08:00 - Physical Exam Vitals and I&O: Vital Signs Temp 99.4 F 02/26/18 07:40 Pulse 51 02/26/18 07:40 Resp 18 02/26/18 08:00 BP 139/79 02/26/18 07:40 Pulse Ox 100 02/26/18 07:40 Intake & Output 02/25/18 02/26/18 02/26/18 18:59 06:59 18:59 Intake Total 1000 450 360 Balance 1000 450 360 Weight (lbs) 83.461 kg 83.461 kg Intake: Intake, IV Amount 200 450 KCL 20mEq/100mL Premix 20 100 meq In 100 ml @ 50 mls/ hr IV Q2H [facility] Rx#: [id number] Piperacillin Sodium/ 100 200 Tazobact 4.5 gm In Sodium Chloride 0.9% 100 ml @ 100 mls/hr IV Q8HR [facility] Rx #:[id number] Vancomycin HCl 1 gm In 250 Sodium Chloride 0.9% 250 ml @ 165 mls/hr IV Q12H [facility] Rx#:[id number] Oral 800 360 Other: # Voids 5 3 # Bowel Movements 3 0 Weight Source Bedscale Bedscale Active Medications: Current Medications Piperacillin Sod/Tazobactam (Sod 4.5 gm/ Sodium Chloride) 100 mls @ 100 mls/hr IV Q8HR [facility] Stop: 04/25/18 04:59 Last Infusion: 02/26/18 06:17 Dose: Infused Potassium Chloride/Dextrose/Sod Cl (D5-0.45ns W/20 Meq Kcl) 1,000 mls @ 80 mls/ hr IV .[id number] [facility] Stop: 04/26/18 08:44 Last Admin: 02/25/18 15:50 Dose: 80 mls/hr Vancomycin HCl 1 gm/ Sodium (Chloride) 250 mls @ 165 mls/hr IV Q12H [facility] Stop: 04/26/18 20:59 Last Admin: 02/26/18 09:06 Dose: 165 mls/hr Ketorolac Tromethamine (Toradol) 15 mg IVP Q6HR PRN PRN Reason: Pain (Moderate) Stop: 03/01/18 12:13 Miscellaneous (Vancomycin Iv Per Pharmacy) 1 ea MC PRN PRN PRN Reason: PROTOCOL Stop: 04/24/18 18:25 Mupirocin (Bactroban Oint) 1 appl TP BID [facility] Stop: 03/01/18 16:59 Last Admin: 02/25/18 16:30 Dose: 1 appl Ondansetron HCl (Zofran) 4 mg IV Q6H PRN PRN Reason: Nausea / Vomiting Stop: 04/26/18 08:30 Last Admin: 02/26/18 05:16 Dose: 4 mg Tramadol HCl (Ultram) 100 mg PO Q6HR PRN PRN Reason: Pain (Severe) Stop: 04/25/18 10:48 Last Admin: 02/25/18 14:45 Dose: 100 mg General: no acute distress, well developed, well nourished HEENT: atraumatic, normocephalic, PERRLA Neck: supple, no thyromegaly Cardiovascular: S1S2, regular Lungs: clear to auscultation bilaterally, clear to percussion Abdomen: soft, no tender, no distended Extremities: no cyanosis, no clubbing, no edema - Procedures Procedures: Procedures Procedure Code Date LAPAROSCOP APPENDECTOMY 47.01 04/21/14 LAPAROSCOPY APPENDECTOMY 80586 04/21/14 Infectious Disease Assmt/Plan - Problem List Patient Problems: All Active Problems WOUND CHECK FOR PAIN AND SWELLING (Acute) - Assessment Assessment: Cellulitis of left index finger, postsurgical site infection. h/o cut injury left index finger. - Plan Plan: Continue Vanco IV and Zosyn IV. 3P bone scan. Wound care. MRI of left hand ordered. Nutritional Asmnt/Malnutr-PDOC - Dietary Evaluation Malnutrition Findings (Please click <Entered> for more info): Nutritional Asmnt/Malnutrition Start: 02/25/18 16: 46 Text: Status: Active Freq: Protocol: Document 02/25/18 17:02 SHERIDOMI (Rec: 02/25/18 17:21 [email or web address] [id number]) Nutritional Asmnt/Malnutrition Patient General Information Nutritional Screening High Risk Consult Diagnosis cellulitis Pertinent Medical Hx/Surgical Hx Pt denies any past medical/ surgical hx Subjective Information Recieved nutrition consult for wound. Pt was seen eating lunch in bed at time of visit. Pt initially c/o n/v possibly due to antibiotics, but reported no more s/s after administration of zofran per nursing note. Admitted d/t cellulitis of left index finger. Encouraged protein intake to promote wound healing. Pt verbalized understood. Per EMR, PO intake 75-100%. Pt provided food preferences. Current Diet Order/ Nutrition Support regular Pertinent Medications vancomycin, piperacillin, zofran, D5-0.45ns w/ 20 Meq Kcl Pertinent Labs 02/23: K 3.3, Cl 108 Nutritional Hx/Data Height 1.68 m Height (Calculated Centimeters) 167.6 Current Weight (lbs) 84.368 kg Weight (Calculated Kilograms) 84.4 Weight (Calculated Grams) 64550.2 [place] Body Weight 130 Body Mass Index (BMI) 29.9 Weight Status Overweight GI Symptoms GI Symptoms Nausea Vomitting Last BM 02/24 x3 Difficult in: None Food Allergies No Skin Integrity/Comment: incision and ulceration to left index finger Current %PO Good (75-100%) Estimated Nutritional Goals BEE in Kcals: Using Current wt Calories/Kcals/Kg 22-25 Kcals Calculated 8228-0553 Protein: Using Current wt Protein g/k Protein Calculated 84g Fluid: ml 2972-1568 (1 ml/kcal) Nutritional Problem 1. Problem Problem Increased protein needs Etiology wound healing Signs/Symptoms: incision and ulceration of left index finger Malnutrition Alert Is there a minimum of two criteria No selected? Query Text:Check all the applicable criteria. A minimum of two criteria are recommended for diagnosis of either severe or non-severe malnutrition. Malnutrition Related to Morbid Obesity Malnutrition related to morbid obesity No Intervention/Recommendation Comments 1. Continue with regular diet as order. PO intake to meet 100% of protein needs. Food preferences updated. 2. Monitor PO intake, wt, labs , and skin integrity of left index finger 3. F/U as moderate risk in 3-5 days, 02/28-03/02 Expected Outcomes/Goals Expected Outcomes/Goals 1. PO intake to meet at least 75% of nutritional needs 2. Wt stability, improvement of skin integrity, labs to approach WNL Reviewed by Alexandra Dalal RD
--- NOTE | 2018-02-26 14:07 | Diagnostic Imaging Report ---
MRI left hand (left index finger) without intravenous contrast HISTORY: Swelling, cellulitis Multiple MRI sequences were obtained in the axial, coronal, and sagittal planes. The exam demonstrates subcentimeter foci and associated artifact noted within the soft tissues adjacent to the lateral aspect of the head of the second middle phalanx. The findings suggest possible foreign body. No radiopaque or metallic density seen on a plain radiograph of 02/23/2018. Though evaluation is limited due to the artifact, no definite abnormal soft tissue masses or abnormal fluid collections are seen. Bone marrow exhibits normal signal intensity throughout the index finger and the remainder of the hand. No other focal lesions. No joint effusions are seen. No definite abnormalities about the major flexor/extensor tendons/ligaments. IMPRESSION: 1. Subcentimeter foci and associated artifact within the soft tissues adjacent to the lateral aspect of the head of the second middle phalanx. Foreign bodies cannot be excluded. No metallic or radiopaque density seen on a plain radiograph of February 23, 2018. 2. No abnormal soft tissue masses or abnormal loculated fluid collections. 3. No evidence of osteomyelitis
--- NOTE | 2018-02-26 21:35 | General Progress Note ---
Subjective - Review of Systems Service Date: 02/26/18 Subjective: Patient doing better MRI left index finger negative for osteo Objective - Results Result Diagrams: 02/26/18 05:40 02/26/18 05:40 Recent Labs: Laboratory Last Values WBC 7.7 Th/cmm (4.8-10.8) 02/26/18 05:40 RBC 3.78 Mil/cmm (3.80-5.10) L 02/26/18 05:40 Hgb 9.7 gm/dL (12-16) L 02/26/18 05:40 Hct 30.0 % (41.0-60) L 02/26/18 05:40 MCV 79.2 fl (81-100) L 02/26/18 05:40 MCH 25.5 pg (27.0-31.0) L 02/26/18 05:40 MCHC Differential 32.2 pg (28.0-36.0) 02/26/18 05:40 RDW 14.6 % (11.5-20.0) 02/26/18 05:40 Plt Count 459 Th/cmm (150-400) H 02/26/18 05:40 MPV 8.2 fl 02/26/18 05:40 Neutrophils % 61.0 % (40.0-80.0) 02/26/18 05:40 Lymphocytes % 25.9 % (20.0-50.0) 02/26/18 05:40 Monocytes % 11.0 % (2.0-10.0) H 02/26/18 05:40 Eosinophils % 1.7 % (0.0-5.0) 02/26/18 05:40 Basophils % 0.4 % (0.0-2.0) 02/26/18 05:40 ESR 54 mm/hr (0-30) H 02/23/18 12:00 PT 9.3 SECONDS (9.5-11.5) L 02/23/18 12:00 INR 0.88 (0.5-1.4) 02/23/18 12:00 PTT (Actin FS) 27.6 SECONDS (26.0-38.0) 02/23/18 12:00 Sodium 139 mEq/L (136-145) 02/26/18 05:40 Potassium 3.5 mEq/L (3.5-5.1) 02/26/18 05:40 Chloride 107 mEq/L (98-107) 02/26/18 05:40 Carbon Dioxide 23.8 mEq/L (21.0-31.0) 02/26/18 05:40 Anion Gap 11.7 (7.0-16.0) 02/26/18 05:40 BUN 13 mg/dL (7-25) 02/26/18 05:40 Creatinine 1.0 mg/dL (0.6-1.2) 02/26/18 05:40 Est GFR ( Amer) > 60.0 ml/min (>90) 02/26/18 05:40 Est GFR (Non-Af Amer) > 60.0 ml/min 02/26/18 05:40 BUN/Creatinine Ratio 13.0 02/26/18 05:40 Glucose 93 mg/dL (70-105) 02/26/18 05:40 Calcium 9.1 mg/dL (8.6-10.3) 02/26/18 05:40 Phosphorus 2.8 mg/dL (2.5-5.0) 02/23/18 12:00 Magnesium 2.2 mg/dL (1.9-2.7) 02/23/18 12:00 Total Bilirubin 0.4 mg/dL (0.3-1.0) 02/26/18 05:40 AST 13 U/L (13-39) 02/26/18 05:40 ALT 8 U/L (7-52) 02/26/18 05:40 Alkaline Phosphatase 37 U/L (34-104) 02/26/18 05:40 Total Protein 6.9 gm/dL (6.0-8.3) 02/26/18 05:40 Albumin 3.6 gm/dL (3.7-5.3) L 02/26/18 05:40 Globulin 3.3 gm/dL 02/26/18 05:40 Albumin/Globulin Ratio 1.1 (1.0-1.8) 02/26/18 05:40 Urine Source CLEAN C 02/23/18 14:52 Urine Color YELLOW 02/23/18 14:52 Urine Clarity CLEAR (CLEAR) 02/23/18 14:52 Urine pH 7.5 (4.6 - 8.0) 02/23/18 14:52 Ur Specific [place] 1.025 (1.005-1.030) 02/23/18 14:52 Urine Protein TRACE mg/dL (NEGATIVE) 02/23/18 14:52 Urine Glucose (UA) NEGATIVE mg/dL (NEGATIVE) 02/23/18 14:52 Urine Ketones NEGATIVE mg/dL (NEGATIVE) 02/23/18 14:52 Urine Blood LARGE (NEGATIVE) H 02/23/18 14:52 Urine Nitrate NEGATIVE (NEGATIVE) 02/23/18 14:52 Urine Bilirubin NEGATIVE (NEGATIVE) 02/23/18 14:52 Urine Urobilinogen 0.2 E.U./dL (0.2 - 1.0) 02/23/18 14:52 Ur Leukocyte Esterase NEGATIVE (NEGATIVE) 02/23/18 14:52 Urine RBC 50-100 /hpf (0-5) H 02/23/18 14:52 Urine WBC 0-2 /hpf (0-5) 02/23/18 14:52 Ur Epithelial Cells MODERATE /lpf (FEW) 02/23/18 14:52 Urine Bacteria 1+ /hpf (NONE SEEN) H 02/23/18 14:52 Urine Test NEGATIVE 02/25/18 18:00 Vancomycin Trough 21.6 ug/mL (5-10) H 02/25/18 08:00 - Physical Exam Vitals and I&O: Vital Signs Temp 98.8 F 02/26/18 20:00 Pulse 55 02/26/18 20:00 Resp 20 02/26/18 20:00 BP 151/73 02/26/18 20:00 Pulse Ox 100 02/26/18 20:00 Intake & Output 02/26/18 02/26/18 02/27/18 06:59 18:59 06:59 Intake Total 450 710 Balance 450 710 Weight (lbs) 83.461 kg Intake: Intake, IV Amount 450 350 Piperacillin Sodium/ 200 100 Tazobact 4.5 gm In Sodium Chloride 0.9% 100 ml @ 100 mls/hr IV Q8HR [facility] Rx #:[id number] Vancomycin HCl 1 gm In 250 250 Sodium Chloride 0.9% 250 ml @ 165 mls/hr IV Q12H [facility] Rx#:[id number] Oral 360 Other: # Voids 3 # Bowel Movements 0 Weight Source Bedscale Active Medications: Current Medications Piperacillin Sod/Tazobactam (Sod 4.5 gm/ Sodium Chloride) 100 mls @ 100 mls/hr IV Q8HR [facility] Stop: 04/25/18 04:59 Last Infusion: 02/26/18 15:31 Dose: Infused Potassium Chloride/Dextrose/Sod Cl (D5-0.45ns W/20 Meq Kcl) 1,000 mls @ 80 mls/ hr IV .[id number] [facility] Stop: 04/26/18 08:44 Last Admin: 02/25/18 15:50 Dose: 80 mls/hr Vancomycin HCl 1 gm/ Sodium (Chloride) 250 mls @ 165 mls/hr IV Q12H [facility] Stop: 04/26/18 20:59 Last Infusion: 02/26/18 10:37 Dose: Infused Ketorolac Tromethamine (Toradol) 15 mg IVP Q6HR PRN PRN Reason: Pain (Moderate) Stop: 03/01/18 12:13 Miscellaneous (Vancomycin Iv Per Pharmacy) 1 ea MC PRN PRN PRN Reason: PROTOCOL Stop: 04/24/18 18:25 Mupirocin (Bactroban Oint) 1 appl TP BID [facility] Stop: 03/01/18 16:59 Last Admin: 02/26/18 17:13 Dose: Not Given Ondansetron HCl (Zofran) 4 mg IV Q6H PRN PRN Reason: Nausea / Vomiting Stop: 04/26/18 08:30 Last Admin: 02/26/18 20:42 Dose: 4 mg Tramadol HCl (Ultram) 100 mg PO Q6HR PRN PRN Reason: Pain (Severe) Stop: 04/25/18 10:48 Last Admin: 02/26/18 14:31 Dose: 100 mg Cardiovascular: Regular rate Lungs: Clear to auscultation Extremities: Other (left index finger dressing in place clean) - Procedures Procedures: Procedures Procedure Code Date LAPAROSCOP APPENDECTOMY 47.01 04/21/14 LAPAROSCOPY APPENDECTOMY 94839 04/21/14 Assessment/Plan - Problem List Patient Problems: All Active Problems WOUND CHECK FOR PAIN AND SWELLING (Acute) - Assessment Assessment: Left index finger cellulitis Vomiting and diarrhea ? Medication side effect better - Plan Plan: MRI negative for osteo Continue IV antibiotics and wound care per ortho rec remove suture per ortho Plan of care discussed with the nursing staff Nutritional Asmnt/Malnutr-PDOC - Dietary Evaluation Malnutrition Findings (Please click <Entered> for more info): Nutritional Asmnt/Malnutrition Start: 02/25/18 16: 46 Text: Status: Active Freq: Protocol: Document 02/25/18 17:02 SANDRA (Rec: 02/25/18 17:21 SANDRA [id number]) Nutritional Asmnt/Malnutrition Patient General Information Nutritional Screening High Risk Consult Diagnosis cellulitis Pertinent Medical Hx/Surgical Hx Pt denies any past medical/ surgical hx Subjective Information Recieved nutrition consult for wound. Pt was seen eating lunch in bed at time of visit. Pt initially c/o n/v possibly due to antibiotics, but reported no more s/s after administration of zofran per nursing note. Admitted d/t cellulitis of left index finger. Encouraged protein intake to promote wound healing. Pt verbalized understood. Per EMR, PO intake 75-100%. Pt provided food preferences. Current Diet Order/ Nutrition Support regular Pertinent Medications vancomycin, piperacillin, zofran, D5-0.45ns w/ 20 Meq Kcl Pertinent Labs 02/23: K 3.3, Cl 108 Nutritional Hx/Data Height 1.68 m Height (Calculated Centimeters) 167.6 Current Weight (lbs) 84.368 kg Weight (Calculated Kilograms) 84.4 Weight (Calculated Grams) 08523.2 [place] Body Weight 130 Body Mass Index (BMI) 29.9 Weight Status Overweight GI Symptoms GI Symptoms Nausea Vomitting Last BM 02/24 x3 Difficult in: None Food Allergies No Skin Integrity/Comment: incision and ulceration to left index finger Current %PO Good (75-100%) Estimated Nutritional Goals BEE in Kcals: Using Current wt Calories/Kcals/Kg 22-25 Kcals Calculated Protein: Using Current wt Protein g/k Protein Calculated 84g Fluid: ml (1 ml/kcal) Nutritional Problem 1. Problem Problem Increased protein needs Etiology wound healing Signs/Symptoms: incision and ulceration of left index finger Malnutrition Alert Is there a minimum of two criteria No selected? Query Text:Check all the applicable criteria. A minimum of two criteria are recommended for diagnosis of either severe or non-severe malnutrition. Malnutrition Related to Morbid Obesity Malnutrition related to morbid obesity No Intervention/Recommendation Comments 1. Continue with regular diet as order. PO intake to meet 100% of protein needs. Food preferences updated. 2. Monitor PO intake, wt, labs , and skin integrity of left index finger 3. F/U as moderate risk in 3-5 days, 02/28-03/02 Expected Outcomes/Goals Expected Outcomes/Goals 1. PO intake to meet at least 75% of nutritional needs 2. Wt stability, improvement of skin integrity, labs to approach WNL Reviewed by Alexandra Dalal RD
--- NOTE | 2018-02-27 00:34 | General Progress Note ---
Subjective - Review of Systems Service Date: 02/26/18 Subjective: Minimal / no pain left index finger. She had the sutures removed 02-25 and has been doing intermitant epsom salt soaks. Objective - Results Result Diagrams: 02/26/18 05:40 02/26/18 05:40 Recent Labs: Laboratory Last Values WBC 7.7 Th/cmm (4.8-10.8) 02/26/18 05:40 RBC 3.78 Mil/cmm (3.80-5.10) L 02/26/18 05:40 Hgb 9.7 gm/dL (12-16) L 02/26/18 05:40 Hct 30.0 % (41.0-60) L 02/26/18 05:40 MCV 79.2 fl (81-100) L 02/26/18 05:40 MCH 25.5 pg (27.0-31.0) L 02/26/18 05:40 MCHC Differential 32.2 pg (28.0-36.0) 02/26/18 05:40 RDW 14.6 % (11.5-20.0) 02/26/18 05:40 Plt Count 459 Th/cmm (150-400) H 02/26/18 05:40 MPV 8.2 fl 02/26/18 05:40 Neutrophils % 61.0 % (40.0-80.0) 02/26/18 05:40 Lymphocytes % 25.9 % (20.0-50.0) 02/26/18 05:40 Monocytes % 11.0 % (2.0-10.0) H 02/26/18 05:40 Eosinophils % 1.7 % (0.0-5.0) 02/26/18 05:40 Basophils % 0.4 % (0.0-2.0) 02/26/18 05:40 ESR 54 mm/hr (0-30) H 02/23/18 12:00 PT 9.3 SECONDS (9.5-11.5) L 02/23/18 12:00 INR 0.88 (0.5-1.4) 02/23/18 12:00 PTT (Actin FS) 27.6 SECONDS (26.0-38.0) 02/23/18 12:00 Sodium 139 mEq/L (136-145) 02/26/18 05:40 Potassium 3.5 mEq/L (3.5-5.1) 02/26/18 05:40 Chloride 107 mEq/L (98-107) 02/26/18 05:40 Carbon Dioxide 23.8 mEq/L (21.0-31.0) 02/26/18 05:40 Anion Gap 11.7 (7.0-16.0) 02/26/18 05:40 BUN 13 mg/dL (7-25) 02/26/18 05:40 Creatinine 1.0 mg/dL (0.6-1.2) 02/26/18 05:40 Est GFR ( Amer) > 60.0 ml/min (>90) 02/26/18 05:40 Est GFR (Non-Af Amer) > 60.0 ml/min 02/26/18 05:40 BUN/Creatinine Ratio 13.0 02/26/18 05:40 Glucose 93 mg/dL (70-105) 02/26/18 05:40 Calcium 9.1 mg/dL (8.6-10.3) 02/26/18 05:40 Phosphorus 2.8 mg/dL (2.5-5.0) 02/23/18 12:00 Magnesium 2.2 mg/dL (1.9-2.7) 02/23/18 12:00 Total Bilirubin 0.4 mg/dL (0.3-1.0) 02/26/18 05:40 AST 13 U/L (13-39) 02/26/18 05:40 ALT 8 U/L (7-52) 02/26/18 05:40 Alkaline Phosphatase 37 U/L (34-104) 02/26/18 05:40 Total Protein 6.9 gm/dL (6.0-8.3) 02/26/18 05:40 Albumin 3.6 gm/dL (3.7-5.3) L 02/26/18 05:40 Globulin 3.3 gm/dL 02/26/18 05:40 Albumin/Globulin Ratio 1.1 (1.0-1.8) 02/26/18 05:40 Urine Source CLEAN C 02/23/18 14:52 Urine Color YELLOW 02/23/18 14:52 Urine Clarity CLEAR (CLEAR) 02/23/18 14:52 Urine pH 7.5 (4.6 - 8.0) 02/23/18 14:52 Ur Specific [place] 1.025 (1.005-1.030) 02/23/18 14:52 Urine Protein TRACE mg/dL (NEGATIVE) 02/23/18 14:52 Urine Glucose (UA) NEGATIVE mg/dL (NEGATIVE) 02/23/18 14:52 Urine Ketones NEGATIVE mg/dL (NEGATIVE) 02/23/18 14:52 Urine Blood LARGE (NEGATIVE) H 02/23/18 14:52 Urine Nitrate NEGATIVE (NEGATIVE) 02/23/18 14:52 Urine Bilirubin NEGATIVE (NEGATIVE) 02/23/18 14:52 Urine Urobilinogen 0.2 E.U./dL (0.2 - 1.0) 02/23/18 14:52 Ur Leukocyte Esterase NEGATIVE (NEGATIVE) 02/23/18 14:52 Urine RBC 50-100 /hpf (0-5) H 02/23/18 14:52 Urine WBC 0-2 /hpf (0-5) 02/23/18 14:52 Ur Epithelial Cells MODERATE /lpf (FEW) 02/23/18 14:52 Urine Bacteria 1+ /hpf (NONE SEEN) H 02/23/18 14:52 Urine Test NEGATIVE 02/25/18 18:00 Vancomycin Trough 21.6 ug/mL (5-10) H 02/25/18 08:00 - Physical Exam Vitals and I&O: Vital Signs Temp 98.8 F 02/26/18 20:00 Pulse 55 02/26/18 20:00 Resp 18 02/26/18 20:00 BP 151/73 02/26/18 20:00 Pulse Ox 100 02/26/18 20:00 Intake & Output 02/26/18 02/26/18 02/27/18 06:59 18:59 06:59 Intake Total 450 710 Balance 450 710 Weight (lbs) 83.461 kg Intake: Intake, IV Amount 450 350 Piperacillin Sodium/ 200 100 Tazobact 4.5 gm In Sodium Chloride 0.9% 100 ml @ 100 mls/hr IV Q8HR [facility] Rx #:[id number] Vancomycin HCl 1 gm In 250 250 Sodium Chloride 0.9% 250 ml @ 165 mls/hr IV Q12H [facility] Rx#:[id number] Oral 360 Other: # Voids 3 # Bowel Movements 0 Weight Source Bedscale Active Medications: Current Medications Piperacillin Sod/Tazobactam (Sod 4.5 gm/ Sodium Chloride) 100 mls @ 100 mls/hr IV Q8HR [facility] Stop: 04/25/18 04:59 Last Admin: 02/26/18 21:34 Dose: 100 mls/hr Potassium Chloride/Dextrose/Sod Cl (D5-0.45ns W/20 Meq Kcl) 1,000 mls @ 80 mls/ hr IV .[id number] [facility] Stop: 04/26/18 08:44 Last Admin: 02/25/18 15:50 Dose: 80 mls/hr Vancomycin HCl 1 gm/ Sodium (Chloride) 250 mls @ 165 mls/hr IV Q12H [facility] Stop: 04/26/18 20:59 Last Admin: 02/26/18 22:34 Dose: 165 mls/hr Ketorolac Tromethamine (Toradol) 15 mg IVP Q6HR PRN PRN Reason: Pain (Moderate) Stop: 03/01/18 12:13 Miscellaneous (Vancomycin Iv Per Pharmacy) 1 ea MC PRN PRN PRN Reason: PROTOCOL Stop: 04/24/18 18:25 Mupirocin (Bactroban Oint) 1 appl TP BID [facility] Stop: 03/01/18 16:59 Last Admin: 02/26/18 17:13 Dose: Not Given Ondansetron HCl (Zofran) 4 mg IV Q6H PRN PRN Reason: Nausea / Vomiting Stop: 04/26/18 08:30 Last Admin: 02/26/18 20:42 Dose: 4 mg Tramadol HCl (Ultram) 100 mg PO Q6HR PRN PRN Reason: Pain (Severe) Stop: 04/25/18 10:48 Last Admin: 02/26/18 14:31 Dose: 100 mg Cardiovascular: Regular rate Lungs: Clear to auscultation Abdomen: Soft, no Tender, no Distended Extremities: Other (left index finger dressing in place clean) - Procedures Procedures: Procedures Procedure Code Date LAPAROSCOP APPENDECTOMY 47.01 04/21/14 LAPAROSCOPY APPENDECTOMY 86995 04/21/14 Assessment/Plan - Problem List Patient Problems: All Active Problems WOUND CHECK FOR PAIN AND SWELLING (Acute) - Assessment Assessment: Swelling (mild) and now open wound, left index finger. No drainage noted..Neurovascular, OK. Continue with present Rx. Probably able to go to outpatient care soon. Nutritional Asmnt/Malnutr-PDOC - Dietary Evaluation Malnutrition Findings (Please click <Entered> for more info): Nutritional Asmnt/Malnutrition Start: 02/25/18 16: 46 Text: Status: Active Freq: Protocol: Document 02/25/18 17:02 SANDRA (Rec: 02/25/18 17:21 SANDRA [id number]) Nutritional Asmnt/Malnutrition Patient General Information Nutritional Screening High Risk Consult Diagnosis cellulitis Pertinent Medical Hx/Surgical Hx Pt denies any past medical/ surgical hx Subjective Information Recieved nutrition consult for wound. Pt was seen eating lunch in bed at time of visit. Pt initially c/o n/v possibly due to antibiotics, but reported no more s/s after administration of zofran per nursing note. Admitted d/t cellulitis of left index finger. Encouraged protein intake to promote wound healing. Pt verbalized understood. Per EMR, PO intake 75-100%. Pt provided food preferences. Current Diet Order/ Nutrition Support regular Pertinent Medications vancomycin, piperacillin, zofran, D5-0.45ns w/ 20 Meq Kcl Pertinent Labs 02/23: K 3.3, Cl 108 Nutritional Hx/Data Height 1.68 m Height (Calculated Centimeters) 167.6 Current Weight (lbs) 84.368 kg Weight (Calculated Kilograms) 84.4 Weight (Calculated Grams) 45069.2 [place] Body Weight 130 Body Mass Index (BMI) 29.9 Weight Status Overweight GI Symptoms GI Symptoms Nausea Vomitting Last BM 02/24 x3 Difficult in: None Food Allergies No Skin Integrity/Comment: incision and ulceration to left index finger Current %PO Good (75-100%) Estimated Nutritional Goals BEE in Kcals: Using Current wt Calories/Kcals/Kg 22-25 Kcals Calculated Protein: Using Current wt Protein g/k Protein Calculated 84g Fluid: ml (1 ml/kcal) Nutritional Problem 1. Problem Problem Increased protein needs Etiology wound healing Signs/Symptoms: incision and ulceration of left index finger Malnutrition Alert Is there a minimum of two criteria No selected? Query Text:Check all the applicable criteria. A minimum of two criteria are recommended for diagnosis of either severe or non-severe malnutrition. Malnutrition Related to Morbid Obesity Malnutrition related to morbid obesity No Intervention/Recommendation Comments 1. Continue with regular diet as order. PO intake to meet 100% of protein needs. Food preferences updated. 2. Monitor PO intake, wt, labs , and skin integrity of left index finger 3. F/U as moderate risk in 3-5 days, 02/28-03/02 Expected Outcomes/Goals Expected Outcomes/Goals 1. PO intake to meet at least 75% of nutritional needs 2. Wt stability, improvement of skin integrity, labs to approach WNL Reviewed by Alexandra Dalal RD
[2018-02-27] MEDS: D5-0.45NS w/20 mEq KCL 1,000 ML IV SCH (05:32)
--- NOTE | 2018-02-27 13:32 | Infectious Disease Prog Note ---
Infectious Disease Subjective - Review of Systems Service Date: 02/27/18 Subjective: NO change as such. No fever. Infectious Disease Objective - Results Result Diagrams: 02/26/18 05:40 02/26/18 05:40 Recent Labs: Laboratory Last Values WBC 7.7 Th/cmm (4.8-10.8) 02/26/18 05:40 RBC 3.78 Mil/cmm (3.80-5.10) L 02/26/18 05:40 Hgb 9.7 gm/dL (12-16) L 02/26/18 05:40 Hct 30.0 % (41.0-60) L 02/26/18 05:40 MCV 79.2 fl (81-100) L 02/26/18 05:40 MCH 25.5 pg (27.0-31.0) L 02/26/18 05:40 MCHC Differential 32.2 pg (28.0-36.0) 02/26/18 05:40 RDW 14.6 % (11.5-20.0) 02/26/18 05:40 Plt Count 459 Th/cmm (150-400) H 02/26/18 05:40 MPV 8.2 fl 02/26/18 05:40 Neutrophils % 61.0 % (40.0-80.0) 02/26/18 05:40 Lymphocytes % 25.9 % (20.0-50.0) 02/26/18 05:40 Monocytes % 11.0 % (2.0-10.0) H 02/26/18 05:40 Eosinophils % 1.7 % (0.0-5.0) 02/26/18 05:40 Basophils % 0.4 % (0.0-2.0) 02/26/18 05:40 ESR 54 mm/hr (0-30) H 02/23/18 12:00 PT 9.3 SECONDS (9.5-11.5) L 02/23/18 12:00 INR 0.88 (0.5-1.4) 02/23/18 12:00 PTT (Actin FS) 27.6 SECONDS (26.0-38.0) 02/23/18 12:00 Sodium 139 mEq/L (136-145) 02/26/18 05:40 Potassium 3.5 mEq/L (3.5-5.1) 02/26/18 05:40 Chloride 107 mEq/L (98-107) 02/26/18 05:40 Carbon Dioxide 23.8 mEq/L (21.0-31.0) 02/26/18 05:40 Anion Gap 11.7 (7.0-16.0) 02/26/18 05:40 BUN 13 mg/dL (7-25) 02/26/18 05:40 Creatinine 1.0 mg/dL (0.6-1.2) 02/26/18 05:40 Est GFR ( Amer) > 60.0 ml/min (>90) 02/26/18 05:40 Est GFR (Non-Af Amer) > 60.0 ml/min 02/26/18 05:40 BUN/Creatinine Ratio 13.0 02/26/18 05:40 Glucose 93 mg/dL (70-105) 02/26/18 05:40 Calcium 9.1 mg/dL (8.6-10.3) 02/26/18 05:40 Phosphorus 2.8 mg/dL (2.5-5.0) 02/23/18 12:00 Magnesium 2.2 mg/dL (1.9-2.7) 02/23/18 12:00 Total Bilirubin 0.4 mg/dL (0.3-1.0) 02/26/18 05:40 AST 13 U/L (13-39) 02/26/18 05:40 ALT 8 U/L (7-52) 02/26/18 05:40 Alkaline Phosphatase 37 U/L (34-104) 02/26/18 05:40 Total Protein 6.9 gm/dL (6.0-8.3) 02/26/18 05:40 Albumin 3.6 gm/dL (3.7-5.3) L 02/26/18 05:40 Globulin 3.3 gm/dL 02/26/18 05:40 Albumin/Globulin Ratio 1.1 (1.0-1.8) 02/26/18 05:40 Urine Source CLEAN C 02/23/18 14:52 Urine Color YELLOW 02/23/18 14:52 Urine Clarity CLEAR (CLEAR) 02/23/18 14:52 Urine pH 7.5 (4.6 - 8.0) 02/23/18 14:52 Ur Specific [place] 1.025 (1.005-1.030) 02/23/18 14:52 Urine Protein TRACE mg/dL (NEGATIVE) 02/23/18 14:52 Urine Glucose (UA) NEGATIVE mg/dL (NEGATIVE) 02/23/18 14:52 Urine Ketones NEGATIVE mg/dL (NEGATIVE) 02/23/18 14:52 Urine Blood LARGE (NEGATIVE) H 02/23/18 14:52 Urine Nitrate NEGATIVE (NEGATIVE) 02/23/18 14:52 Urine Bilirubin NEGATIVE (NEGATIVE) 02/23/18 14:52 Urine Urobilinogen 0.2 E.U./dL (0.2 - 1.0) 02/23/18 14:52 Ur Leukocyte Esterase NEGATIVE (NEGATIVE) 02/23/18 14:52 Urine RBC 50-100 /hpf (0-5) H 02/23/18 14:52 Urine WBC 0-2 /hpf (0-5) 02/23/18 14:52 Ur Epithelial Cells MODERATE /lpf (FEW) 02/23/18 14:52 Urine Bacteria 1+ /hpf (NONE SEEN) H 02/23/18 14:52 Urine Test NEGATIVE 02/25/18 18:00 Vancomycin Trough 17.8 ug/mL (5-10) H 02/27/18 08:00 - Physical Exam Vitals and I&O: Vital Signs Temp 98.2 F 02/27/18 12:09 Pulse 49 02/27/18 12:09 Resp 18 02/27/18 12:09 BP 152/80 02/27/18 12:09 Pulse Ox 99 02/27/18 12:09 Intake & Output 02/26/18 02/27/18 02/27/18 18:59 06:59 18:59 Intake Total 710 690 Balance 710 690 Weight (lbs) 83.461 kg 86.183 kg Intake: Intake, IV Amount 350 450 Piperacillin Sodium/ 100 200 Tazobact 4.5 gm In Sodium Chloride 0.9% 100 ml @ 100 mls/hr IV Q8HR [facility] Rx #:[id number] Vancomycin HCl 1 gm In 250 250 Sodium Chloride 0.9% 250 ml @ 165 mls/hr IV Q12H [facility] Rx#:[id number] Oral 360 240 Other: # Voids 3 2 # Bowel Movements 0 0 Stool Characteristics Soft Liquid Brown Weight Source Bedscale Bedscale Active Medications: Current Medications Piperacillin Sod/Tazobactam (Sod 4.5 gm/ Sodium Chloride) 100 mls @ 100 mls/hr IV Q8HR [facility] Stop: 04/25/18 04:59 Last Admin: 02/27/18 12:58 Dose: 100 mls/hr Potassium Chloride/Dextrose/Sod Cl (D5-0.45ns W/20 Meq Kcl) 1,000 mls @ 80 mls/ hr IV .[id number] [facility] Stop: 04/26/18 08:44 Last Admin: 02/27/18 05:32 Dose: 80 mls/hr Vancomycin HCl 1 gm/ Sodium (Chloride) 250 mls @ 165 mls/hr IV Q12H [facility] Stop: 04/26/18 20:59 Last Admin: 02/27/18 08:41 Dose: 165 mls/hr Ketorolac Tromethamine (Toradol) 15 mg IVP Q6HR PRN PRN Reason: Pain (Moderate) Stop: 03/01/18 12:13 Miscellaneous (Vancomycin Iv Per Pharmacy) 1 ea MC PRN PRN PRN Reason: PROTOCOL Stop: 04/24/18 18:25 Mupirocin (Bactroban Oint) 1 appl TP BID [facility] Stop: 03/01/18 16:59 Last Admin: 02/27/18 08:42 Dose: 1 appl Ondansetron HCl (Zofran) 4 mg IV Q6H PRN PRN Reason: Nausea / Vomiting Stop: 04/26/18 08:30 Last Admin: 02/27/18 13:00 Dose: 4 mg Tramadol HCl (Ultram) 100 mg PO Q6HR PRN PRN Reason: Pain (Severe) Stop: 04/25/18 10:48 Last Admin: 02/26/18 14:31 Dose: 100 mg General: no acute distress, well developed, well nourished HEENT: atraumatic, normocephalic, PERRLA Neck: supple, no thyromegaly Cardiovascular: S1S2, regular Lungs: clear to auscultation bilaterally, clear to percussion Abdomen: soft, no tender, no distended Extremities: no cyanosis, no clubbing, no edema Neurological: awake, alert, oriented, other (left index finger, open small wound and erythema has resolved, no pus) Skin: intact - Procedures Procedures: Procedures Procedure Code Date LAPAROSCOP APPENDECTOMY 47.01 04/21/14 LAPAROSCOPY APPENDECTOMY 66599 04/21/14 Infectious Disease Assmt/Plan - Problem List Patient Problems: All Active Problems WOUND CHECK FOR PAIN AND SWELLING (Acute) - Assessment Assessment: 1. Cellulitis of left index finger, postsurgical site infection. improved significantly. 2. h/o cut injury left index finger. - Plan Plan: may dc patient on bactrim and augmentin. prescription given. Wound care. MRI of left hand ordered. Nutritional Asmnt/Malnutr-PDOC - Dietary Evaluation Malnutrition Findings (Please click <Entered> for more info): Nutritional Asmnt/Malnutrition Start: 02/25/18 16: 46 Text: Status: Active Freq: Protocol: Document 02/25/18 17:02 SHERIDOMI (Rec: 02/25/18 17:21 [email or web address] [id number]) Nutritional Asmnt/Malnutrition Patient General Information Nutritional Screening High Risk Consult Diagnosis cellulitis Pertinent Medical Hx/Surgical Hx Pt denies any past medical/ surgical hx Subjective Information Recieved nutrition consult for wound. Pt was seen eating lunch in bed at time of visit. Pt initially c/o n/v possibly due to antibiotics, but reported no more s/s after administration of zofran per nursing note. Admitted d/t cellulitis of left index finger. Encouraged protein intake to promote wound healing. Pt verbalized understood. Per EMR, PO intake 75-100%. Pt provided food preferences. Current Diet Order/ Nutrition Support regular Pertinent Medications vancomycin, piperacillin, zofran, D5-0.45ns w/ 20 Meq Kcl Pertinent Labs 02/23: K 3.3, Cl 108 Nutritional Hx/Data Height 1.68 m Height (Calculated Centimeters) 167.6 Current Weight (lbs) 84.368 kg Weight (Calculated Kilograms) 84.4 Weight (Calculated Grams) 49769.2 [place] Body Weight 130 Body Mass Index (BMI) 29.9 Weight Status Overweight GI Symptoms GI Symptoms Nausea Vomitting Last BM 02/24 x3 Difficult in: None Food Allergies No Skin Integrity/Comment: incision and ulceration to left index finger Current %PO Good (75-100%) Estimated Nutritional Goals BEE in Kcals: Using Current wt Calories/Kcals/Kg 22-25 Kcals Calculated Protein: Using Current wt Protein g/k Protein Calculated 84g Fluid: ml (1 ml/kcal) Nutritional Problem 1. Problem Problem Increased protein needs Etiology wound healing Signs/Symptoms: incision and ulceration of left index finger Malnutrition Alert Is there a minimum of two criteria No selected? Query Text:Check all the applicable criteria. A minimum of two criteria are recommended for diagnosis of either severe or non-severe malnutrition. Malnutrition Related to Morbid Obesity Malnutrition related to morbid obesity No Intervention/Recommendation Comments 1. Continue with regular diet as order. PO intake to meet 100% of protein needs. Food preferences updated. 2. Monitor PO intake, wt, labs , and skin integrity of left index finger 3. F/U as moderate risk in 3-5 days, 02/28-03/02 Expected Outcomes/Goals Expected Outcomes/Goals 1. PO intake to meet at least 75% of nutritional needs 2. Wt stability, improvement of skin integrity, labs to approach WNL Reviewed by Alexandra Dalal RD
[2018-02-27] MEDS ORDERED: Sulfamethoxazole/TMP 800/160mg Tab PO ONE (13:37)
== END 2018-02-27 16:55 | disposition home or self-care (01) | DRG 721 ==
LOC: ER 11:01 → MSI 17:47
PROVIDERS: ADMIT Family Medicine; ATTEND Family Medicine
DX: T81.4XXA Infection following a procedure, initial encounter (principal); E87.6 Hypokalemia; Y83.8 Other surgical procedures as the cause of abnormal reaction of the patient, or of later complication, without mention of misadventure at the time of the procedure; Y92.89 Other specified places as the place of occurrence of the external cause; L03.012 Cellulitis of left finger; Z91.14 Patient's other noncompliance with medication regimen; Z88.8 Allergy status to other drugs, medicaments and biological substances; Z82.49 Family history of ischemic heart disease and other diseases of the circulatory system; Z83.3 Family history of diabetes mellitus
CPT/HCPCS: 36415-UA; 73120-TC-LT; 73218-TC-LT; 78315-TC; 80053-TC; 80202-TC; 81001-TC; 81025-TC; 82565-TC; 83735-TC; 84100-TC; 84520-TC; 85025-TC; 85610-TC; 85652-TC; 90784; 96375; A9503; J1885; J2405; J2543; J2930; J3370; J3480